=== PATIENT | male | born 1955 | race American Indian/Alaskan Native ===

== ENCOUNTER 2017-03-14 11:18 | Emergency (ER) | payer MEDICARE ==
--- NOTE | 2017-03-14 11:49 | Emergency Department Report ---
ED Male HPI - General Chief complaint: Urogenital-Male Stated complaint: PAIN/PROSTATE/GROIN AREA Time Seen by Provider: 03/14/17 11:48 Source: patient Mode of arrival: Ambulatory Limitations: No Limitations - History of Present Illness Initial comments: 61 M past medical history presents with complaint of 2-3 weeks of scrotal discomfort. Patient states that his discomfort lies directly behind his scrotum. Denies any history of prostate issues prostate enlargement or prostate cancer. States that approximately 4 months ago he had his prostate level PSA checked by primary doctor and states that it was normal. Patient denies any fevers chills abdominal pain or any diarrhea. States he has mild anal discomfort with defecation but denies any other symptoms. States he was last sexually active over a year and a half ago. Patient is awake alert and nontoxic appearing. Denies any urethral discharge. Denies any genitourinary rash. Denies any bulge in scrotum or above penis and inguinal region. No dysuria or increased urinary frequency reported. MD Complaint: testicle pain, testicle swelling Onset/Timin -: week(s) Radiation: none Severity: mild Severity scale (0 -10): 2 Quality: aching Worsens with: none - Related Data Previous Rx's Medication Instructions Recorded Last Taken Type Ondansetron [Zofran TAB] 4 mg PO Q8HR PRN #10 tablet 09/17/15 Unknown Rx Cephalexin [Keflex] 1,000 mg PO Q12HR 5 Days 09/19/15 Unknown Rx predniSONE [Deltasone] 40 mg PO QDAY #8 tab 09/19/15 Unknown Rx Famotidine [Pepcid] 20 mg PO BID #30 tablet 03/19/16 Unknown Rx Prednisone [predniSONE 10 mg 10 mg PO .TAPER #1 tab.ds.pk 03/19/16 Unknown Rx (6-Day Pack, 21 Tabs)] HYDROcodone/APAP 5-325 [[place] 1 each PO Q6HR PRN #10 tablet 04/01/16 Unknown Rx 5/325] Ibuprofen [Motrin 800 MG tab] 800 mg PO Q8HR PRN #30 tablet 06/18/16 Unknown Rx Naproxen [Naprosyn] 375 mg PO BID PRN #20 tablet 03/14/17 Unknown Rx Allergies Allergy/AdvReac Type Severity Reaction Status Date / Time No Known Allergies Allergy Verified 09/19/15 09:38 ED Review of Systems ROS: Stated complaint: PAIN/PROSTATE/GROIN AREA Other details as noted in HPI Constitutional: denies: chills, fever Eyes: denies: eye pain, eye discharge, vision change ENT: denies: ear pain, throat pain Respiratory: denies: cough, shortness of breath, wheezing Cardiovascular: denies: chest pain, palpitations Endocrine: no symptoms reported Gastrointestinal: denies: abdominal pain, nausea, diarrhea Genitourinary: as per HPI, other (discomfort behind his scrotum as per patient) . denies: urgency, dysuria Musculoskeletal: denies: back pain, joint swelling, arthralgia Skin: denies: rash, lesions Neurological: denies: headache, weakness, paresthesias Psychiatric: denies: anxiety, depression Hematological/Lymphatic: denies: easy bleeding, easy bruising ED Past Medical Hx - Past Medical History Previous Medical History?: Yes Additional medical history: Hypercholesterolemia - Surgical History Past Surgical History?: Yes Additional Surgical History: sinus surgery @ age 17, surgery on umbilicus when he was 7 - Social History Smoking Status: Never Smoker Substance Use Type: None - Medications Home Medications: Home Medications Medication Instructions Recorded Confirmed Last Taken Type Ondansetron [Zofran TAB] 4 mg PO Q8HR PRN #10 tablet 09/17/15 Unknown Rx Cephalexin [Keflex] 1,000 mg PO Q12HR 5 Days 09/19/15 Unknown Rx predniSONE [Deltasone] 40 mg PO QDAY #8 tab 09/19/15 Unknown Rx Famotidine [Pepcid] 20 mg PO BID #30 tablet 03/19/16 Unknown Rx Prednisone [predniSONE 10 mg 10 mg PO .TAPER #1 tab.ds.pk 03/19/16 Unknown Rx (6-Day Pack, 21 Tabs)] HYDROcodone/APAP 5-325 [[place] 1 each PO Q6HR PRN #10 tablet 04/01/16 Unknown Rx 5/325] Ibuprofen [Motrin 800 MG tab] 800 mg PO Q8HR PRN #30 tablet 06/18/16 Unknown Rx Naproxen [Naprosyn] 375 mg PO BID PRN #20 tablet 03/14/17 Unknown Rx ED Physical Exam - General Limitations: No Limitations General appearance: alert, in no apparent distress - Head Head exam: Present: atraumatic, normocephalic - Eye Eye exam: Present: normal appearance, PERRL, EOMI - ENT ENT exam: Present: mucous membranes moist - Neck Neck exam: Present: normal inspection - Respiratory Respiratory exam: Present: normal lung sounds bilaterally. Absent: respiratory distress - Cardiovascular Cardiovascular Exam: Present: regular rate, normal rhythm. Absent: systolic murmur, diastolic murmur, rubs, gallop - GI/Abdominal GI/Abdominal exam: Present: soft, normal bowel sounds - Rectal Rectal exam: Present: deferred, normal rectal tone, hemorrhoids (patient has 1 visible and palpable external hemorrhoid approximately 1.5 cm in size at 6 o' clock position), normal prostate (there is no palpable prostate tenderness is reproducible on digital rectal exam and no significant enlargement of prostate) - exam: Present: normal inspection External exam: Present: normal external exam, other (there is no crepitus or signs of external infection or cellulitis and scrotal or perineal region there is no crepitus on palpation anywhere in this region) - Extremities Exam Extremities exam: Present: normal inspection - Back Exam Back exam: Present: normal inspection - Neurological Exam Neurological exam: Present: alert, oriented X3, CN II-XII intact, normal gait - Psychiatric Psychiatric exam: Present: normal affect, normal mood - Skin Skin exam: Present: warm, dry, intact, normal color. Absent: rash ED Course Vital Signs 03/14/17 11:28 Temperature 98.9 F Pulse Rate 58 L Respiratory 16 Rate Blood Pressure 129/85 O2 Sat by Pulse 100 Oximetry ED Medical Decision Making - Medical Decision Making A/P: Varicocele 1-there are no signs of infection rashes or lesions otherwise externally on inspection of the patient's region 2-ultrasound shows no epididymitis, urinalysis is unremarkable, GC culture sent however infection with GC is unlikely as patient is adamant he has not been sexually active in over one year and a half. 3-naproxen when necessary 4- provided patient with follow-up information for urology and advised him to follow-up with his primary doctor as well. I advised patient to return to the ED if he notices fevers chills abdominal pain significant rectal pain or any signs of dysuria or increased urinary frequency or foul-smelling urine. Patient states he understands my instructions Critical care attestation.: If time is entered above; I have spent that time in minutes in the direct care of this critically ill patient, excluding procedure time. ED Disposition Clinical Impression: Varicocele Disposition: TO HOME OR SELFCARE Is pt being admited?: No Does the pt Need Aspirin: No Condition: Stable Instructions: Varicocele (ED), Testicle Pain (ED) Prescriptions: Naproxen [Naprosyn] 375 mg PO BID PRN #20 tablet PRN Reason: Pain Referrals: BENITO SYED MD [Staff Physician] - 3-5 Days [facility] [Provider Group] - 3-5 Days SIMIN GREWAL MD [Staff Physician] - 3-5 Days Forms: Work/School Release Form(ED) Time of Disposition: 13:46
[2017-03-14 12:40] LABS: Bilirubin,Urine NEG (Negative); Blood,Urine NEG (Negative); Ketones,Urine NEG (Negative); Leukocyte Esterase,Urine NEG (Negative); Mucus,Urine FEW /HPF; Nitrite,Urine NEG (Negative); Protein,Urine <15 mg/dL mg/dL (Negative); Urobilinogen,Urine < 2.0 mg/dL (<2.0)
--- NOTE | 2017-03-14 12:58 | Ultrasound Report ---
ULTRASOUND SCROTAL INDICATION: Pain. Evaluate for right sided epididymitis. COMPARISON: None similar. FINDINGS: Longitudinal and transverse grayscale and color flow sonographic evaluation of the scrotum and its contents demonstrates normal testicular contour and echotexture bilaterally without suspicious intrinsic lesions. Preserved bilateral blood flow. Right testicle estimated at 4.4 x 2.1 x 2.9 cm while the left testicle is 4.4 x 1.6 x 2.8 cm. Small bilateral hydroceles. Normal epididymi. Mild left varicocele possible. CONCLUSION: No acute testicular sonographic abnormality with small bilateral hydroceles noted and possible mild left varicocele, as described. Please correlate. Thank you for the opportunity to participate in this patient's care.
[2017-03-14 14:04] VITALS: BP 141/87
== END 2017-03-14 14:05 | disposition home or self-care (01) ==
LOC: ED 11:18
DX: I86.1 Scrotal varices (principal)
CPT/HCPCS: 81001; 87086; 87591; 93975; 99284

== ENCOUNTER 2017-06-20 12:40 | Emergency (ER) | payer MEDICARE ==
[2017-06-20 12:58] VITALS: BP 118/77
--- NOTE | 2017-06-20 19:44 | Emergency Department Report ---
ED ENT HPI - General Chief complaint: Earache Stated complaint: LT LEG PAIN/ EAR PAIN Time Seen by Provider: 06/20/17 18:40 Source: patient Mode of arrival: Ambulatory Limitations: No Limitations - Related Data Previous Rx's Medication Instructions Recorded Last Taken Type Ondansetron [Zofran TAB] 4 mg PO Q8HR PRN #10 tablet 09/17/15 Unknown Rx Cephalexin [Keflex] 1,000 mg PO Q12HR 5 Days 09/19/15 Unknown Rx predniSONE [Deltasone] 40 mg PO QDAY #8 tab 09/19/15 Unknown Rx Famotidine [Pepcid] 20 mg PO BID #30 tablet 03/19/16 Unknown Rx Prednisone [predniSONE 10 mg 10 mg PO .TAPER #1 tab.ds.pk 03/19/16 Unknown Rx (6-Day Pack, 21 Tabs)] HYDROcodone/APAP 5-325 [[place] 1 each PO Q6HR PRN #10 tablet 04/01/16 Unknown Rx 5/325] Ibuprofen [Motrin 800 MG tab] 800 mg PO Q8HR PRN #30 tablet 06/18/16 Unknown Rx Naproxen [Naprosyn] 375 mg PO BID PRN #20 tablet 03/14/17 Unknown Rx Amoxicillin/K Clav Tab [Augmentin 1 tab PO Q12HR #14 tab 06/20/17 Unknown Rx 875 mg] Ibuprofen [Motrin] 800 mg PO Q8HR PRN #30 tablet 06/20/17 Unknown Rx Allergies Allergy/AdvReac Type Severity Reaction Status Date / Time No Known Allergies Allergy Verified 09/19/15 09:38 ED Dental HPI - General Chief complaint: Earache Stated complaint: LT LEG PAIN/ EAR PAIN Time Seen by Provider: 06/20/17 18:40 Source: patient Mode of arrival: Ambulatory Limitations: No Limitations - Related Data Previous Rx's Medication Instructions Recorded Last Taken Type Ondansetron [Zofran TAB] 4 mg PO Q8HR PRN #10 tablet 09/17/15 Unknown Rx Cephalexin [Keflex] 1,000 mg PO Q12HR 5 Days 09/19/15 Unknown Rx predniSONE [Deltasone] 40 mg PO QDAY #8 tab 09/19/15 Unknown Rx Famotidine [Pepcid] 20 mg PO BID #30 tablet 03/19/16 Unknown Rx Prednisone [predniSONE 10 mg 10 mg PO .TAPER #1 tab.ds.pk 03/19/16 Unknown Rx (6-Day Pack, 21 Tabs)] HYDROcodone/APAP 5-325 [[place] 1 each PO Q6HR PRN #10 tablet 04/01/16 Unknown Rx 5/325] Ibuprofen [Motrin 800 MG tab] 800 mg PO Q8HR PRN #30 tablet 06/18/16 Unknown Rx Naproxen [Naprosyn] 375 mg PO BID PRN #20 tablet 03/14/17 Unknown Rx Amoxicillin/K Clav Tab [Augmentin 1 tab PO Q12HR #14 tab 06/20/17 Unknown Rx 875 mg] Ibuprofen [Motrin] 800 mg PO Q8HR PRN #30 tablet 06/20/17 Unknown Rx Allergies Allergy/AdvReac Type Severity Reaction Status Date / Time No Known Allergies Allergy Verified 09/19/15 09:38 ED Review of Systems ROS: Stated complaint: LT LEG PAIN/ EAR PAIN Other details as noted in HPI ED Past Medical Hx - Past Medical History Previous Medical History?: Yes Additional medical history: Hypercholesterolemia - Surgical History Past Surgical History?: Yes Additional Surgical History: sinus surgery @ age 17, surgery on umbilicus when he was 7 - Social History Smoking Status: Never Smoker - Medications Home Medications: Home Medications Medication Instructions Recorded Confirmed Last Taken Type Ondansetron [Zofran TAB] 4 mg PO Q8HR PRN #10 tablet 09/17/15 Unknown Rx Cephalexin [Keflex] 1,000 mg PO Q12HR 5 Days 09/19/15 Unknown Rx predniSONE [Deltasone] 40 mg PO QDAY #8 tab 09/19/15 Unknown Rx Famotidine [Pepcid] 20 mg PO BID #30 tablet 03/19/16 Unknown Rx Prednisone [predniSONE 10 mg 10 mg PO .TAPER #1 tab.ds.pk 03/19/16 Unknown Rx (6-Day Pack, 21 Tabs)] HYDROcodone/APAP 5-325 [[place] 1 each PO Q6HR PRN #10 tablet 04/01/16 Unknown Rx 5/325] Ibuprofen [Motrin 800 MG tab] 800 mg PO Q8HR PRN #30 tablet 06/18/16 Unknown Rx Naproxen [Naprosyn] 375 mg PO BID PRN #20 tablet 03/14/17 Unknown Rx Amoxicillin/K Clav Tab [Augmentin 1 tab PO Q12HR #14 tab 06/20/17 Unknown Rx 875 mg] Ibuprofen [Motrin] 800 mg PO Q8HR PRN #30 tablet 06/20/17 Unknown Rx ED Physical Exam - General Limitations: No Limitations ED Course Vital Signs 06/20/17 12:55 Temperature 98.8 F Pulse Rate 68 Respiratory 16 Rate Blood Pressure 118/77 O2 Sat by Pulse 100 Oximetry Critical care attestation.: If time is entered above; I have spent that time in minutes in the direct care of this critically ill patient, excluding procedure time. ED Disposition Clinical Impression: Earache Ear foreign body Qualifiers: Encounter type: initial encounter Laterality: right Qualified Code(s): T16.1XXA - Foreign body in right ear, initial encounter Disposition: - TO HOME OR SELFCARE Is pt being admited?: No Does the pt Need Aspirin: No Condition: Stable Instructions: Earache (ED), Ear Foreign Body (ED) Prescriptions: Amoxicillin/K Clav Tab [Augmentin 875 mg] 1 tab PO Q12HR #14 tab Ibuprofen [Motrin] 800 mg PO Q8HR PRN #30 tablet PRN Reason: Pain [facility]errals: [facility]Other] - 3-5 Days Forms: Accompanied Note, Work/School Release Form(ED) Time of Disposition: 19:41
== END 2017-06-20 20:10 | disposition home or self-care (01) ==
LOC: ED 12:40
DX: T16.1XXA Foreign body in right ear, initial encounter (principal); H92.02 Otalgia, left ear; E78.00 Pure hypercholesterolemia, unspecified; X58.XXXA Exposure to other specified factors, initial encounter; Y93.9 Activity, unspecified; Y99.9 Unspecified external cause status; Y92.89 Other specified places as the place of occurrence of the external cause
CPT/HCPCS: 99282

== ENCOUNTER 2017-06-29 08:23 | Emergency (ER) | payer MEDICARE ==
--- NOTE | 2017-06-29 10:57 | Emergency Department Report ---
ED Extremity Problem HPI - General Chief complaint: Extremity Injury, Lower Stated complaint: LEFT LEG SWOLLEN,PAIN Time Seen by Provider: 06/29/17 10:27 Source: patient Mode of arrival: Ambulatory Limitations: No Limitations - History of Present Illness Initial comments: Patient here reports that he is having left leg pain at his calf with some swelling of the back of his leg after playing basketball 10 days ago. He said he was here on 06/20/2017 and he was given an medication but he is worried about having a blood clot and he wants to be sure that he doesn't have a blood clot. Patient denies any personal history of blood clots he said his mom had blood clot but that was after surgery. He denies any long distance travel recently. Denies any prolonged bed rest. Denies any hormonal therapy. Denies any shortness of breath or chest pain. He said after he was seen today told him to follow up but he did not follow-up. He also complained of choking at times. He also reported he did not get his prescription filled last time. Patient denies any redness to his legs and he denies any fever. MD Complaint: extremity pain, extremity swelling Onset/Timin -: days(s) Location: left, lower extremity History of Same: Yes -: Yes myalgia, Yes arthralgia Radiation: none Severity scale (0 -10): 7 Quality: aching Consistency: intermittent Improves with: immobilization, rest Worsens with: weight bearing, walking, exertion Associated Symptoms: myalgias, arthralgias. denies: chest pain, shortness of breath, fever, rash - Related Data Previous Rx's Medication Instructions Recorded Last Taken Type Ondansetron [Zofran TAB] 4 mg PO Q8HR PRN #10 tablet 09/17/15 Unknown Rx Cephalexin [Keflex] 1,000 mg PO Q12HR 5 Days 09/19/15 Unknown Rx predniSONE [Deltasone] 40 mg PO QDAY #8 tab 09/19/15 Unknown Rx Famotidine [Pepcid] 20 mg PO BID #30 tablet 03/19/16 Unknown Rx Prednisone [predniSONE 10 mg 10 mg PO .TAPER #1 tab.ds.pk 03/19/16 Unknown Rx (6-Day Pack, 21 Tabs)] HYDROcodone/APAP 5-325 [[place] 1 each PO Q6HR PRN #10 tablet 04/01/16 Unknown Rx 5/325] Ibuprofen [Motrin 800 MG tab] 800 mg PO Q8HR PRN #30 tablet 06/18/16 Unknown Rx Naproxen [Naprosyn] 375 mg PO BID PRN #20 tablet 03/14/17 Unknown Rx Amoxicillin/K Clav Tab [Augmentin 1 tab PO Q12HR #14 tab 06/20/17 Unknown Rx 875 mg] Ibuprofen [Motrin] 800 mg PO Q8HR PRN #30 tablet 06/20/17 Unknown Rx Allergies Allergy/AdvReac Type Severity Reaction Status Date / Time No Known Allergies Allergy Verified 09/19/15 09:38 ED Review of Systems ROS: Stated complaint: LEFT LEG SWOLLEN,PAIN Other details as noted in HPI Comment: All other systems reviewed and negative Constitutional: no symptoms reported ENT: other (reports feeling choking sensation at times). denies: ear pain, throat pain, congestion Respiratory: no symptoms reported Cardiovascular: denies: chest pain, palpitations, dyspnea on exertion, orthopnea , edema, syncope, paroxysmal nocturnal dyspnea Gastrointestinal: denies: abdominal pain, nausea, vomiting, diarrhea, constipation, hematemesis, melena Musculoskeletal: arthralgia, myalgia. denies: back pain, joint swelling Skin: denies: rash Neurological: denies: headache, weakness, numbness, paresthesias, confusion, abnormal gait, vertigo ED Past Medical Hx - Past Medical History Previous Medical History?: Yes Additional medical history: Hypercholesterolemia - Surgical History Past Surgical History?: Yes Additional Surgical History: sinus surgery @ age 17, surgery on umbilicus when he was 7 - Family History Family history: hypertension - Social History Smoking Status: Never Smoker Substance Use Type: Non Opiate Pain - Medications Home Medications: Home Medications Medication Instructions Recorded Confirmed Last Taken Type Ondansetron [Zofran TAB] 4 mg PO Q8HR PRN #10 tablet 09/17/15 Unknown Rx Cephalexin [Keflex] 1,000 mg PO Q12HR 5 Days 09/19/15 Unknown Rx predniSONE [Deltasone] 40 mg PO QDAY #8 tab 09/19/15 Unknown Rx Famotidine [Pepcid] 20 mg PO BID #30 tablet 03/19/16 Unknown Rx Prednisone [predniSONE 10 mg 10 mg PO .TAPER #1 tab.ds.pk 03/19/16 Unknown Rx (6-Day Pack, 21 Tabs)] HYDROcodone/APAP 5-325 [[place] 1 each PO Q6HR PRN #10 tablet 04/01/16 Unknown Rx 5/325] Ibuprofen [Motrin 800 MG tab] 800 mg PO Q8HR PRN #30 tablet 06/18/16 Unknown Rx Naproxen [Naprosyn] 375 mg PO BID PRN #20 tablet 03/14/17 Unknown Rx Amoxicillin/K Clav Tab [Augmentin 1 tab PO Q12HR #14 tab 06/20/17 Unknown Rx 875 mg] Ibuprofen [Motrin] 800 mg PO Q8HR PRN #30 tablet 06/20/17 Unknown Rx ED Physical Exam - General Limitations: No Limitations General appearance: alert, in no apparent distress - Head Head exam: Present: atraumatic, normocephalic, normal inspection - Eye Eye exam: Present: PERRL, EOMI Pupils: Present: normal accommodation - ENT ENT exam: Present: normal exam, normal orophraynx, mucous membranes moist - Neck Neck exam: Present: normal inspection, full ROM. Absent: tenderness, meningismus, lymphadenopathy - Respiratory Respiratory exam: Present: normal lung sounds bilaterally. Absent: respiratory distress, wheezes, rales, rhonchi, stridor, chest wall tenderness, accessory muscle use, decreased breath sounds, prolonged expiratory - Cardiovascular Cardiovascular Exam: Present: regular rate, normal rhythm, normal heart sounds. Absent: systolic murmur, diastolic murmur - GI/Abdominal GI/Abdominal exam: Present: soft, normal bowel sounds. Absent: distended, tenderness, guarding, rebound, rigid, organomegaly, mass, bruit, pulsatile mass , hernia - Extremities Exam Extremities exam: Present: normal inspection, full ROM, normal capillary refill , other (Negative Homans sign). Absent: tenderness, pedal edema, joint swelling , calf tenderness - Expanded Lower Extremity Exam Left Hip exam: Present: normal inspection, full ROM, pelvic stability. Absent: tenderness, swelling, abrasion, laceration, ecchymosis, deformity, crepidus, dislocation, erythema, external rotation, internal rotation, shortening Upper Leg exam: Present: normal inspection, full ROM. Absent: tenderness, swelling, abrasion, laceration, ecchymosis, deformity, crepidus, dislocation, erythema Knee exam: Present: normal inspection, full ROM, full knee extension. Absent: tenderness, swelling, abrasion, laceration, ecchymosis, deformity, crepidus, dislocation, erythema, effusion, pain w/ pronation/supination, posterior draw sign, pain/laxity with valgus, pain/laxity with varus Lower Leg exam: Present: normal inspection, full ROM. Absent: tenderness, swelling, abrasion, laceration, ecchymosis, deformity, crepidus, dislocation, erythema, palpable cord, Sha's sign Ankle exam: Present: normal inspection, full ROM. Absent: tenderness, swelling , abrasion, laceration, ecchymosis, deformity, crepidus, dislocation, erythema Foot/Toe exam: Present: normal inspection, full ROM. Absent: tenderness, swelling, abrasion, laceration, ecchymosis, deformity, crepidus, dislocation, erythema, amputation, puncture wound, foreign body, calcaneal tenderness, tenderness at base of 5th metatarsal, nail avulsion, subungual hematoma Neuro vascular tendon exam: Present: no vascular compromise. Absent: pulse deficit, abnormal cap refill, motor deficit, sensory deficit, tendon deficit, extremity cold to touch, pallor, abnormal 2-point discrimination, decreased fine /light touch, foot drop, peroneal nerve deficit, significant pain with passive ROM of distal joint Gait: Positive: observed and normal - Back Exam Back exam: Present: normal inspection, full ROM. Absent: tenderness, CVA tenderness (R), CVA tenderness (L), muscle spasm, paraspinal tenderness, vertebral tenderness, rash noted - Neurological Exam Neurological exam: Present: alert, oriented X3, normal gait, reflexes normal. Absent: motor sensory deficit - Psychiatric Psychiatric exam: Present: normal affect, normal mood - Skin Skin exam: Present: warm, dry, intact, normal color. Absent: rash ED Course Vital Signs 06/29/17 08:39 Temperature 98.5 F Pulse Rate 64 Respiratory 20 Rate Blood Pressure 140/90 O2 Sat by Pulse 99 Oximetry - Reevaluation(s) Reevaluation #1: 06/29/17 12:23 She tolerated liquids in the emergency room without any signs of choking or difficulty swallowing. ED Medical Decision Making - Radiology Data Radiology results: report reviewed VASCULAR LAB.PRELIMINARY REPORT.LLE VENOUS DUPLEX DONE BEDSIDE.NO EVIDENCE OF DVT/SVT IN VESSELS VISUALIZED. SOFT TISSUE CHANGES NOTED IN THE LT.MID CALF PROBABLY MUSCLE INJURY. - Medical Decision Making ED course: Should he reports that he is having in left calf pain after basketball injury and he said he felt a knot and he is worried that he has a blood clot. Venous Doppler ultrasound completed of the left lower extremity and there were no SVT or DVT noted. There was soft tissue swelling indicated in muscle injury. She did injure his calf muscle while playing basketball 10 days ago and he did not fill his prescription nor did he follow-up with his primary care physician. I explained to patient that he does not have a blood clot in his leg and he needs to rest the affected area and take medication as prescribed. He still has his prescriptions I told him that he needs to fill the medication for the anti-inflammatory and take that as prescribed for at least 3 days. Patient voiced understanding the discharge instruction and discharged home in stable condition to follow up with his primary care physician. Critical care attestation.: If time is entered above; I have spent that time in minutes in the direct care of this critically ill patient, excluding procedure time. ED Disposition Clinical Impression: Pain of left calf, Muscle strain Injury of leg, left Qualifiers: Encounter type: initial encounter Qualified Code(s): S89.92XA - Unspecified injury of left lower leg, initial encounter Disposition: DC-01 TO HOME OR SELFCARE Is pt being admited?: No Does the pt Need Aspirin: No Condition: Stable Instructions: Arthralgia (ED), Musculoskeletal Pain (ED), Muscle Strain (ED) Additional Instructions: These follow up with your primary care physician as instructed. Take inflammatory as previously prescribed Referrals: PRIMARY MD SUZY [Primary Care Provider] - 07/01/17 Forms: Work/School Release Form(ED)
[2017-06-29] MEDS ORDERED: DILAUDID IV ONE (11:04)
[2017-06-29] MEDS ORDERED: REGLAN IV ONE (11:04)
[2017-06-29] MEDS ORDERED: ROCEPHIN/NS 1 GM/50 ML 1 GM/50 ML BAG IV ONE (11:04)
[2017-06-29 12:50] VITALS: BP 142/70
--- NOTE | 2017-06-29 17:24 | Vascular Lab Report ---
Left Lower Extremity Venous Duplex Study: Reason for Exam: Swelling of the left lower extremity. Comments on the Right: A limited duplex study was done of the proximal veins of the right lower extremity. All veins visualized are freely compressible without evidence of internal echogenicity. Flow is spontaneous and phasic throughout. No evidence of acute or chronic thrombus is seen in any of the vessels visualized. Comments on the Left: All veins visualized are freely compressible without evidence of internal echogenicity. Flow is spontaneous and phasic throughout. No evidence of acute or chronic thrombus is seen in any of the vessels visualized. Soft tissue changes are consistent with intramuscular tear or hematoma. Clinical correlation is recommended Impression: No evidence of acute or chronic deep venous thrombosis in the left lower extremity.
== END 2017-06-29 11:30 | disposition home or self-care (01) ==
LOC: ED 08:23
DX: S93.402A Sprain of unspecified ligament of left ankle, initial encounter (principal); X58.XXXA Exposure to other specified factors, initial encounter; Y93.9 Activity, unspecified; Y92.89 Other specified places as the place of occurrence of the external cause; Y99.9 Unspecified external cause status

== ENCOUNTER 2018-01-11 17:44 | Emergency (ER) | payer MEDICARE ==
[2018-01-11 17:54] VITALS: BP 144/77
[2018-01-11 19:32] LABS: Bilirubin,Urine NEG (Negative); Blood,Urine NEG (Negative); Color,Urine Straw (Yellow); Mucus,Urine FEW /HPF; Protein,Urine <15 mg/dL mg/dL (Negative); Urobilinogen,Urine < 2.0 mg/dL (<2.0); WBC,Urine < 1.0 /HPF (0.0-6.0)
--- NOTE | 2018-01-11 21:20 | Emergency Department Report ---
ED Back Pain/Injury HPI - General Chief Complaint: Back Pain/Injury Stated Complaint: RIGHT SIDE BACK PAIN Time Seen by Provider: 01/11/18 20:57 Source: patient Mode of arrival: Ambulatory Limitations: No Limitations - History of Present Illness Initial Comments: This is a 62-year-old -[place] male presents with right lower back pain. Patient reports pain started 3 days ago. He originally felt a pop in lower back and decided to cyst apply salon [facility] had some right flank. The patient reports a history of chronic neck and back pain from . He remembers feeling given here and a pop sensation in his lower back. Shot up to his neck about 2 days ago. Reports pain is dull and sharp intermittent pain that is aggravated by movement. States pain is sharp when he standing and walking and is in the right lower back. Denies swelling, redness, numbness or tingling, change in voiding or bowel pattern, and deformity. MD Complaint: back pain -: days(s) (3 days) Similar Symptoms Previously: Yes (history of chronic low back pain) Place: home Radiation: none Severity: moderate Severity scale (0 -10): 7 Quality: sharp, aching Consistency: intermittent Improves With: supine, sitting upright Worsens With: movement, walking Context: bending Associated Symptoms: denies other symptoms Treatments Prior to Arrival: heat therapy - Related Data Previous Rx's Medication Instructions Recorded Last Taken Type Ondansetron [Zofran TAB] 4 mg PO Q8HR PRN #10 tablet 09/17/15 Unknown Rx Cephalexin [Keflex] 1,000 mg PO Q12HR 5 Days cap 09/19/15 Unknown Rx predniSONE [Deltasone] 40 mg PO QDAY #8 tab 09/19/15 Unknown Rx Famotidine [Pepcid] 20 mg PO BID #30 tablet 03/19/16 Unknown Rx Prednisone [predniSONE 10 mg 10 mg PO .TAPER #1 tab.ds.pk 03/19/16 Unknown Rx (6-Day Pack, 21 Tabs)] HYDROcodone/APAP 5-325 [[place] 1 each PO Q6HR PRN #10 tablet 04/01/16 Unknown Rx 5/325] Ibuprofen [Motrin 800 MG tab] 800 mg PO Q8HR PRN #30 tablet 06/18/16 Unknown Rx Naproxen [Naprosyn] 375 mg PO BID PRN #20 tablet 03/14/17 Unknown Rx Amoxicillin/K Clav Tab [Augmentin 1 tab PO Q12HR #14 tab 06/20/17 Unknown Rx 875 mg] Ibuprofen [Motrin] 800 mg PO Q8HR PRN #30 tablet 06/20/17 Unknown Rx Cyclobenzaprine HCl [Flexeril 5 MG 5 mg PO TID PRN #20 tab 01/11/18 Unknown Rx TAB] Naproxen Sodium 550 mg PO TID PRN #20 tablet 01/11/18 Unknown Rx Prednisone [predniSONE 10 mg 10 mg PO .TAPER #1 tab.ds.pk 01/11/18 Unknown Rx (6-Day Pack, 21 Tabs)] Allergies Allergy/AdvReac Type Severity Reaction Status Date / Time No Known Allergies Allergy Verified 09/19/15 09:38 ED Review of Systems ROS: Stated complaint: RIGHT SIDE BACK PAIN Other details as noted in HPI Constitutional: denies: chills, fever Respiratory: denies: cough, shortness of breath, wheezing Cardiovascular: denies: chest pain, palpitations, edema, syncope Gastrointestinal: denies: abdominal pain, nausea, diarrhea Musculoskeletal: back pain (low back pain that is worse on right). denies: joint swelling, arthralgia Skin: denies: rash, lesions Neurological: denies: headache, weakness, paresthesias Psychiatric: denies: anxiety, depression ED Past Medical Hx - Past Medical History Hypercholesterolemia Family history: hypertension ED Back Pain Physical Exam - Exam General: Vital signs noted. No distress. Alert and acting appropriately. Back/Abdomen: Yes Sacroiliac Tenderness (right), Yes Flank Tenderness (right), No Abdominal Tenderness, No Perithoracic Tenderness, No Perilumbar Tenderness, No Straight Leg Raise Pain Neuro: Yes Normal Sensation, Yes Normal DTR's, Yes Normal Gait, No Motor Weakness ED Course Vital Signs 01/11/18 17:50 Temperature 98.6 F Pulse Rate 79 Respiratory 16 Rate Blood Pressure 144/77 O2 Sat by Pulse 99 Oximetry Ed Back Pain Tests - Tests Tests: Normal X Rays ED Medical Decision Making - Radiology Data Radiology results: report reviewed PROCEDURE: XR SPINE LUMBOSACRAL 2-3V TECHNIQUE: Lumbar spine radiographs, including AP, lateral, and lumbosacral spot views. CPT 72270 HISTORY: low back pain COMPARISON: No prior studies are available for comparison. FINDINGS: Alignment: Normal. Vertebral body heights/Disk spaces: Normal. Fracture(s): None. Facets: Normal. Bone mineralization: Normal. IMPRESSION: Normal Examination - Medical Decision Making This is a 62 y.o. male presents with low back pain for 3 days. Patient was examined by me. Vitals stable. Nontoxic appearing. Xray of L-spine obtained and normal scan. Normal UA. Patient informed of results. Physical findings susceptible of muscle strain. Start naproxe, cyclobenzaprine, and prednisone taper for pain. Plan discussed with patient to discharge home and treat outpatient. He agrees with ER plan. Patient discharged home in stable condition. Follow up with PCP and dentist in 2-3 days. Critical care attestation.: If time is entered above; I have spent that time in minutes in the direct care of this critically ill patient, excluding procedure time. ED Disposition Clinical Impression: Strain of muscle, fascia and tendon of lower back, initial encounter Disposition: TO HOME OR SELFCARE Is pt being admited?: No Does the pt Need Aspirin: No Condition: Stable Instructions: Muscle Strain (ED) Additional Instructions: Rest Use ice or heat on affected area for 20 minutes and off for 2 hours. Take pain medication as needed for pain. Don't drive or operate heavy machinery while taking muscle relaxers because they may cause drowsiness. Follow up with Primary Care Provider in 2-3 days. Prescriptions: Cyclobenzaprine HCl [Flexeril 5 MG TAB] 5 mg PO TID PRN #20 tab PRN Reason: Muscle Spasm Naproxen Sodium 550 mg PO TID PRN #20 tablet PRN Reason: Pain Prednisone [predniSONE 10 mg (6-Day Pack, 21 Tabs)] 10 mg PO .TAPER #1 tab.ds.pk Referrals: [facility] [Outside] - 3-5 Days [facility] [Outside] - 3-5 Days [facility] [Outside] - 3-5 Days Forms: Work/School Release Form(ED) Time of Disposition: 23:37 Print Language: PALESTINIAN
--- NOTE | 2018-01-11 23:18 | XRay Report ---
FINAL REPORT PROCEDURE: XR SPINE LUMBOSACRAL 2-3V TECHNIQUE: Lumbar spine radiographs, including AP, lateral, and lumbosacral spot views. CPT 95031 HISTORY: low back pain COMPARISON: No prior studies are available for comparison. FINDINGS: Alignment: Normal. Vertebral body heights/Disk spaces: Normal. Fracture(s): None. Facets: Normal. Bone mineralization: Normal. IMPRESSION: Normal Examination.
== END 2018-01-11 23:56 | disposition home or self-care (01) ==
LOC: ED 17:44
DX: S39.012A Strain of muscle, fascia and tendon of lower back, initial encounter (principal); G89.29 Other chronic pain; I10 Essential (primary) hypertension; E78.00 Pure hypercholesterolemia, unspecified; X50.9XXA Other and unspecified overexertion or strenuous movements or postures, initial encounter; Y93.89 Activity, other specified; Y99.8 Other external cause status; Y92.009 Unspecified place in unspecified non-institutional (private) residence as the place of occurrence of the external cause
CPT/HCPCS: 72100; 81001; 99283

== ENCOUNTER 2018-04-08 07:22 | Emergency (ER) | payer MEDICARE ==
[2018-04-08 08:30] VITALS: BP 129/84
[2018-04-08] MEDS ORDERED: ALUM-MAG HYDROX-SIMETH 200-200-20MG/5ML PO ONE (08:45)
[2018-04-08] MEDS ORDERED: LIDOCAINE VISCOUS 2% PO ONE (08:45)
[2018-04-08] MEDS ORDERED: ZOFRAN ODT PO ONE (08:45)
[2018-04-08] MEDS ORDERED: BENTYL PO ONE (08:45)
--- NOTE | 2018-04-08 08:45 | Emergency Department Report ---
Vomiting/Diarrhea - HPI Chief Complaint: Medical Clearance Stated Complaint: LOW BODY TEMP Time Seen by Provider: 04/08/18 08:38 Duration: 2 Days Nausea/Vomiting Severity: None Diarrhea Severity: Mild Pain Location: Epigastric (resolved) Pain Severity: Mild Symptoms: Yes Watery Diarrhea (loose stool 1), Yes Able to Tolerate Fluids, Yes Recent Unusual Foods (old popcorn), Yes Family w/ Similar Symptoms, Yes Contacts w/ Similar Symptoms, No Bloody diarrhea, No Fever, No Recent Untreated Water, No Recent use of Antibiotics, No Rash, No Hematuria, No Recent URI Symptoms Other History: This is a 62-year-old male reported that he is here because he ate some popcorn that he thought was old 2 days ago and he started feeling hot yesterday. He says his temperature was 95 yesterday at home. He denies any abdominal pain, nausea or vomiting or diarrhea at present but reports that the time he was having nausea vomiting diarrhea and he had one loose stool this morning but no vomiting. He states that he has chronic back pain from old injury. Denies any pain at present. He said he took some medication to soothe his stomach and he feels better but he is here because temperature was 95. ED Review of Systems ROS: Stated complaint: LOW BODY TEMP Other details as noted in HPI Constitutional: other (low temperature). denies: chills, fever ENT: denies: throat pain, congestion Respiratory: denies: cough, shortness of breath, wheezing Cardiovascular: denies: chest pain, palpitations Gastrointestinal: diarrhea. denies: abdominal pain, nausea, vomiting, constipation, hematemesis, melena, hematochezia Musculoskeletal: denies: back pain, joint swelling, arthralgia, myalgia Skin: denies: rash, lesions Neurological: denies: headache, weakness, numbness, paresthesias, confusion, abnormal gait, vertigo ED Past Medical Hx - Past Medical History Previous Medical History?: Yes Additional medical history: Hypercholesterolemia. Chronic lower back pain - Surgical History Past Surgical History?: Yes Additional Surgical History: sinus surgery @ age 17, surgery on umbilicus when he was 7 - Family History Family history: hypertension - Social History Smoking Status: Never Smoker Substance Use Type: None - Medications Home Medications: Home Medications Medication Instructions Recorded Confirmed Last Taken Type Ondansetron [Zofran TAB] 4 mg PO Q8HR PRN #10 tablet 09/17/15 Unknown Rx Cephalexin [Keflex] 1,000 mg PO Q12HR 5 Days cap 09/19/15 Unknown Rx predniSONE [Deltasone] 40 mg PO QDAY #8 tab 09/19/15 Unknown Rx Famotidine [Pepcid] 20 mg PO BID #30 tablet 03/19/16 Unknown Rx Prednisone [predniSONE 10 mg 10 mg PO .TAPER #1 tab.ds.pk 03/19/16 Unknown Rx (6-Day Pack, 21 Tabs)] HYDROcodone/APAP 5-325 [[place] 1 each PO Q6HR PRN #10 tablet 04/01/16 Unknown Rx 5/325] Ibuprofen [Motrin 800 MG tab] 800 mg PO Q8HR PRN #30 tablet 06/18/16 Unknown Rx Naproxen [Naprosyn] 375 mg PO BID PRN #20 tablet 03/14/17 Unknown Rx Amoxicillin/K Clav Tab [Augmentin 1 tab PO Q12HR #14 tab 06/20/17 Unknown Rx 875 mg] Ibuprofen [Motrin] 800 mg PO Q8HR PRN #30 tablet 06/20/17 Unknown Rx Cyclobenzaprine HCl [Flexeril 5 MG 5 mg PO TID PRN #20 tab 01/11/18 Unknown Rx TAB] Naproxen Sodium 550 mg PO TID PRN #20 tablet 01/11/18 Unknown Rx Prednisone [predniSONE 10 mg 10 mg PO .TAPER #1 tab.ds.pk 01/11/18 Unknown Rx (6-Day Pack, 21 Tabs)] Dicyclomine [Bentyl] 40 mg PO Q8H 3 Days #9 tablet 04/08/18 Unknown Rx Ondansetron [Zofran Odt] 4 mg PO Q6H PRN #20 tab.rapdis 04/08/18 Unknown Rx Vomiting Diarrhea Exam - Exam General: Vital signs noted. No distress. Alert and acting appropriately. This is a 62-year-old male well-nourished well-developed in no acute distress. HEENT: Yes Moist Mucous Membranes, No Pharyngeal Erythema, No Pharyngeal Exudates, No Rhinorrhea, No Conjuctival Injection, No Frontal Tenderness, No Maxillary Tenderness Neck: No Adenopathy, No Rigidity Lungs: No Clear Lung Sounds, No Good Air Exchange, No Wheezes, No Stridor, No Cough, No Nasal Flaring, No Retractions, No Use of Accessory Muscles Heart exam: Regular: Yes, Murmur: No, Tachycardia: No Abdomen: Tenderness: No, Peritoneal Signs: No, Distention: No, Hyperactive Bowel sounds: No Skin exam: Rash: No, Edema: No, Normal turgor: Yes Neurologic: Alert and oriented, no deficits. Musculoskeletal: Unremarkable. ED Course Vital Signs 04/08/18 07:22 Temperature 98.6 F Pulse Rate 70 Respiratory 18 Rate Blood Pressure 129/84 O2 Sat by Pulse 99 Oximetry - Reevaluation(s) Reevaluation #1: 04/08/18 09:24 Patient given Bentyl, lidocaine by mouth and Maalox by mouth. He is also given Zofran 8 mg ODT and was feeling better. He is able to tolerate water and emergency room without any nausea vomiting or diarrhea. ED Medical Decision Making - Medical Decision Making This is a 62-year-old male here reported that he ate that foreign and he was evidence of nausea vomiting diarrhea yesterday he had one loose stool today but no nausea or vomiting today. He also reports that he was having abdominal cramping. Denies any fevers chills and he states that he is concerned about his temperature because excellent 95. She was examined by myself. His vital signs are stable and he is afebrile. Temperature is 98.6. Abdominal back exam is normal. All other examination is normal. The patient would ambulate. He does not look sick and is nontoxic in appearance. Patient able to tolerate water and emergency room without any nausea vomiting or diarrhea. He was given Bentyl, Maalox, lidocaine and Zofran for abdominal discomforts and he said he is feeling a lot better. Patient to follow-up with his primary care physician which she does have one tomorrow Simple nausea vomiting or diarrhea-resolved Abdominal cramping-resolved She given Zofran 8 mg ODT, Bentyl 20 mg by mouth, Maalox 15 mL by mouth and lidocaine 15 mL by mouth and emergency room empirically to prevent recurrence of symptoms. He drank water and he has no symptoms of nausea vomiting diarrhea and abdominal cramping. I educated patient on bland diet to eat banana, rice, applesauce and toast over the next 72 hours and to avoid spicy and carbonated beverages and he voiced understanding Pt discharged home in stable condition. Vital signs are stable is afebrile and he said follow-up with his primary care physician tomorrow. Discharge home with prescription for Zofran and Bentyl - Differential Diagnosis gastroenteritis, food poisoning Critical care attestation.: If time is entered above; I have spent that time in minutes in the direct care of this critically ill patient, excluding procedure time. ED Disposition Clinical Impression: Nausea vomiting and diarrhea, Abdominal cramping Disposition: TO HOME OR SELFCARE Is pt being admited?: No Does the pt Need Aspirin: No Condition: Stable Instructions: Acute Nausea and Vomiting (ED), Abdominal Pain (ED), Nutrition Tips for Relief of Diarrhea (ED), Acute Diarrhea (ED) Additional Instructions: Please eat a bland diet over the next 3 days to include benign arrives some toast She will water intake Take medication as prescribed Symptoms worsen return to the emergency room Follow-up through primary care physician tomorrow Referrals: PRIMARY MD SUZY [Primary Care Provider] - 04/10/18 Forms: Work/School Release Form(ED)
== END 2018-04-08 09:41 | disposition home or self-care (01) ==
LOC: ED 07:47
DX: R10.9 Unspecified abdominal pain (principal); R11.2 Nausea with vomiting, unspecified; R19.7 Diarrhea, unspecified; E78.00 Pure hypercholesterolemia, unspecified; G89.29 Other chronic pain; M54.5 Low back pain
CPT/HCPCS: 99282; Q0162

== ENCOUNTER 2018-09-24 06:19 | Emergency (ER) | payer MEDICARE ==
--- NOTE | 2018-09-24 07:24 | Emergency Department Report ---
ED ENT HPI - General Chief complaint: Sore Throat Stated complaint: MERY / TROUBLE SWALLOWING Time Seen by Provider: 09/24/18 07:07 Source: patient Mode of arrival: Ambulatory Limitations: No Limitations - History of Present Illness Initial comments: This is a 62-year-old male nontoxic, well nourished in appearance, no acute signs of distress presents to the ED with c/o of sore throat. Patient describes sore throat as swallowing razer blades. Patient denies any fever, chills, headache, stiff neck, nausea, vomiting, chest pain, shortness of breath, n umbness or tingling. Patient denies any drooling or hoarseness. Patient denies any allergies. MD complaint: sore throat -: week(s) (1) Severity: mild Severity scale (0 -10): 8 Quality: aching Consistency: constant Improves with: none Worsens with: swallowing Associated Symptoms: pain with swallowing, sore throat. denies: fever, cough, gum swelling, toothache, tinnitus, hearing loss, discharge from ear, rhinorrhea - Related Data Previous Rx's Medication Instructions Recorded Last Taken Type Ondansetron [Zofran TAB] 4 mg PO Q8HR PRN #10 tablet 09/17/15 Unknown Rx cephALEXin [Keflex] 1,000 mg PO Q12HR 5 Days cap 09/19/15 Unknown Rx predniSONE [Deltasone] 40 mg PO QDAY #8 tab 09/19/15 Unknown Rx Famotidine [Pepcid] 20 mg PO BID #30 tablet 03/19/16 Unknown Rx Prednisone [predniSONE 10 mg 10 mg PO .TAPER #1 tab.ds.pk 03/19/16 Unknown Rx (6-Day Pack, 21 Tabs)] HYDROcodone/APAP 5-325 [[place] 1 each PO Q6HR PRN #10 tablet 04/01/16 Unknown Rx 5/325] Ibuprofen [Motrin 800 MG tab] 800 mg PO Q8HR PRN #30 tablet 06/18/16 Unknown Rx Naproxen [Naprosyn] 375 mg PO BID PRN #20 tablet 03/14/17 Unknown Rx Amoxicillin/K Clav Tab [Augmentin 1 tab PO Q12HR #14 tab 06/20/17 Unknown Rx 875 mg] Ibuprofen [Motrin] 800 mg PO Q8HR PRN #30 tablet 06/20/17 Unknown Rx Cyclobenzaprine HCl [Flexeril 5 MG 5 mg PO TID PRN #20 tab 01/11/18 Unknown Rx TAB] Naproxen Sodium 550 mg PO TID PRN #20 tablet 01/11/18 Unknown Rx Prednisone [predniSONE 10 mg 10 mg PO .TAPER #1 tab.ds.pk 01/11/18 Unknown Rx (6-Day Pack, 21 Tabs)] Dicyclomine [Bentyl] 40 mg PO Q8H 3 Days #9 tablet 04/08/18 Unknown Rx Ondansetron [Zofran Odt] 4 mg PO Q6H PRN #20 tab.rapdis 04/08/18 Unknown Rx Amoxicillin [Amoxicillin TAB] 875 mg PO BID #20 tablet 09/24/18 Unknown Rx Ibuprofen [Motrin] 600 mg PO Q8H PRN #20 tablet 09/24/18 Unknown Rx Nystas/Diphen/Xyl Visc/Mylanta 15 ml MM Q4H PRN 5 Days ml 09/24/18 Unknown Rx [Magic Mouthwash] Allergies Allergy/AdvReac Type Severity Reaction Status Date / Time No Known Allergies Allergy Verified 04/08/18 08:27 ED Dental HPI - General Chief complaint: Sore Throat Stated complaint: MERY / TROUBLE SWALLOWING Time Seen by Provider: 09/24/18 07:07 Source: patient Mode of arrival: Ambulatory Limitations: No Limitations - Related Data Previous Rx's Medication Instructions Recorded Last Taken Type Ondansetron [Zofran TAB] 4 mg PO Q8HR PRN #10 tablet 09/17/15 Unknown Rx cephALEXin [Keflex] 1,000 mg PO Q12HR 5 Days cap 09/19/15 Unknown Rx predniSONE [Deltasone] 40 mg PO QDAY #8 tab 09/19/15 Unknown Rx Famotidine [Pepcid] 20 mg PO BID #30 tablet 03/19/16 Unknown Rx Prednisone [predniSONE 10 mg 10 mg PO .TAPER #1 tab.ds.pk 03/19/16 Unknown Rx (6-Day Pack, 21 Tabs)] HYDROcodone/APAP 5-325 [[place] 1 each PO Q6HR PRN #10 tablet 04/01/16 Unknown Rx 5/325] Ibuprofen [Motrin 800 MG tab] 800 mg PO Q8HR PRN #30 tablet 06/18/16 Unknown Rx Naproxen [Naprosyn] 375 mg PO BID PRN #20 tablet 03/14/17 Unknown Rx Amoxicillin/K Clav Tab [Augmentin 1 tab PO Q12HR #14 tab 06/20/17 Unknown Rx 875 mg] Ibuprofen [Motrin] 800 mg PO Q8HR PRN #30 tablet 06/20/17 Unknown Rx Cyclobenzaprine HCl [Flexeril 5 MG 5 mg PO TID PRN #20 tab 01/11/18 Unknown Rx TAB] Naproxen Sodium 550 mg PO TID PRN #20 tablet 01/11/18 Unknown Rx Prednisone [predniSONE 10 mg 10 mg PO .TAPER #1 tab.ds.pk 01/11/18 Unknown Rx (6-Day Pack, 21 Tabs)] Dicyclomine [Bentyl] 40 mg PO Q8H 3 Days #9 tablet 04/08/18 Unknown Rx Ondansetron [Zofran Odt] 4 mg PO Q6H PRN #20 tab.rapdis 04/08/18 Unknown Rx Amoxicillin [Amoxicillin TAB] 875 mg PO BID #20 tablet 09/24/18 Unknown Rx Ibuprofen [Motrin] 600 mg PO Q8H PRN #20 tablet 09/24/18 Unknown Rx Nystas/Diphen/Xyl Visc/Mylanta 15 ml MM Q4H PRN 5 Days ml 09/24/18 Unknown Rx [Magic Mouthwash] Allergies Allergy/AdvReac Type Severity Reaction Status Date / Time No Known Allergies Allergy Verified 04/08/18 08:27 ED Review of Systems ROS: Stated complaint: MERY / TROUBLE SWALLOWING Other details as noted in HPI Constitutional: denies: chills, fever Eyes: denies: eye pain, eye discharge, vision change ENT: throat pain. denies: ear pain Respiratory: denies: cough, shortness of breath, wheezing Cardiovascular: denies: chest pain, palpitations Endocrine: no symptoms reported Gastrointestinal: denies: abdominal pain, nausea, diarrhea Genitourinary: denies: urgency, dysuria Musculoskeletal: denies: back pain, joint swelling, arthralgia Skin: denies: rash, lesions Neurological: denies: headache, weakness, paresthesias Psychiatric: denies: anxiety, depression Hematological/Lymphatic: denies: easy bleeding, easy bruising ED Past Medical Hx - Past Medical History Previous Medical History?: Yes Additional medical history: Hypercholesterolemia. Chronic lower back pain - Surgical History Past Surgical History?: Yes Additional Surgical History: sinus surgery @ age 17, surgery on umbilicus when he was 7 - Social History Smoking Status: Never Smoker - Medications Home Medications: Home Medications Medication Instructions Recorded Confirmed Last Taken Type Ondansetron [Zofran TAB] 4 mg PO Q8HR PRN #10 tablet 09/17/15 Unknown Rx cephALEXin [Keflex] 1,000 mg PO Q12HR 5 Days cap 09/19/15 Unknown Rx predniSONE [Deltasone] 40 mg PO QDAY #8 tab 09/19/15 Unknown Rx Famotidine [Pepcid] 20 mg PO BID #30 tablet 03/19/16 Unknown Rx Prednisone [predniSONE 10 mg 10 mg PO .TAPER #1 tab.ds.pk 03/19/16 Unknown Rx (6-Day Pack, 21 Tabs)] HYDROcodone/APAP 5-325 [[place] 1 each PO Q6HR PRN #10 tablet 04/01/16 Unknown Rx 5/325] Ibuprofen [Motrin 800 MG tab] 800 mg PO Q8HR PRN #30 tablet 06/18/16 Unknown Rx Naproxen [Naprosyn] 375 mg PO BID PRN #20 tablet 03/14/17 Unknown Rx Amoxicillin/K Clav Tab [Augmentin 1 tab PO Q12HR #14 tab 06/20/17 Unknown Rx 875 mg] Ibuprofen [Motrin] 800 mg PO Q8HR PRN #30 tablet 06/20/17 Unknown Rx Cyclobenzaprine HCl [Flexeril 5 MG 5 mg PO TID PRN #20 tab 01/11/18 Unknown Rx TAB] Naproxen Sodium 550 mg PO TID PRN #20 tablet 01/11/18 Unknown Rx Prednisone [predniSONE 10 mg 10 mg PO .TAPER #1 tab.ds.pk 01/11/18 Unknown Rx (6-Day Pack, 21 Tabs)] Dicyclomine [Bentyl] 40 mg PO Q8H 3 Days #9 tablet 04/08/18 Unknown Rx Ondansetron [Zofran Odt] 4 mg PO Q6H PRN #20 tab.rapdis 04/08/18 Unknown Rx Amoxicillin [Amoxicillin TAB] 875 mg PO BID #20 tablet 09/24/18 Unknown Rx Ibuprofen [Motrin] 600 mg PO Q8H PRN #20 tablet 09/24/18 Unknown Rx Nystas/Diphen/Xyl Visc/Mylanta 15 ml MM Q4H PRN 5 Days ml 09/24/18 Unknown Rx [Magic Mouthwash] ED Physical Exam - General Limitations: No Limitations General appearance: alert, in no apparent distress - Head Head exam: Present: atraumatic, normocephalic - Eye Eye exam: Present: normal appearance - Expanded ENT Exam Expanded Ear exam: Present: normal external inspection Mouth exam: Present: normal external inspection. Absent: drooling, trismus, muffled voice Teeth exam: Present: normal inspection Throat exam: Positive: tonsillar erythema, other (uvula midline). Negative: tonsillomegaly, tonsillar exudate, R peritonsillar mass, L peritonsillar mass - Neck Neck exam: Present: normal inspection, full ROM, lymphadenopathy (tonsillar). Absent: tenderness, meningismus - Extremities Exam Extremities exam: Present: normal inspection, full ROM - Back Exam Back exam: Present: normal inspection, full ROM - Neurological Exam Neurological exam: Present: alert, oriented X3 - Psychiatric Psychiatric exam: Present: normal affect, normal mood - Skin Skin exam: Present: warm, dry, intact, normal color. Absent: rash ED Course Vital Signs 09/24/18 09/24/18 06:22 06:48 Temperature 98.0 F 98.0 F Pulse Rate 62 59 L Respiratory 18 18 Rate Blood Pressure 132/79 132/79 O2 Sat by Pulse 96 96 Oximetry - Reevaluation(s) Reevaluation #1: 09/24/18 07:30 Patient is speaking in full sentences with no signs of distress noted. Critical care attestation.: If time is entered above; I have spent that time in minutes in the direct care of this critically ill patient, excluding procedure time. ED Disposition Clinical Impression: Pharyngitis Qualifiers: Pharyngitis/tonsillitis etiology: unspecified etiology Qualified Code(s): J02.9 - Acute pharyngitis, unspecified Disposition: -01 TO HOME OR SELFCARE Is pt being admited?: No Does the pt Need Aspirin: No Condition: Stable Instructions: Pharyngitis (ED) Additional Instructions: Follow-up with a primary care doctor in 3-5 days or if symptoms worsen and continue return to emergency room as soon as possible. Prescriptions: Amoxicillin [Amoxicillin TAB] 875 mg PO BID #20 tablet Ibuprofen [Motrin] 600 mg PO Q8H PRN #20 tablet PRN Reason: Pain Nystas/Diphen/Xyl Visc/Mylanta [Magic Mouthwash] 15 ml MM Q4H PRN 5 Days ml PRN Reason: Sore Throat Referrals: ARIELLE TORRES [Primary Care Provider] - 3-5 Days PRIMARY CAREMD [Referring] - 3-5 Days BRANDO EMMANUEL MD [Staff Physician] - 3-5 Days [facility] [Outside] - 3-[address] [facility] [Outside] - 3-5 Days Forms: Work/School Release Form(ED)
== END 2018-09-24 07:51 | disposition home or self-care (01) ==
LOC: ED 06:19
CPT/HCPCS: 99282

== ENCOUNTER 2018-10-04 09:56 | Emergency (ER) | payer MEDICARE ==
[2018-10-04 10:05] VITALS: BP 150/75
--- NOTE | 2018-10-04 11:32 | XRay Report ---
ROUTINE CHEST, TWO VIEWS: Chest pain. PA and lateral views demonstrate the heart and mediastinal contour to be of normal size and shape. The lungs are clear and fully expanded and the soft tissues and bony structures are normal. Notable change compared to prior exam in March 2016. IMPRESSION: Normal study.
--- NOTE | 2018-10-04 11:34 | XRay Report ---
AP AND LATERAL SOFT TISSUES OF THE NECK: Dysphasia. The contour of the upper airway appears within normal limits. The epiglottis is not enlarged. No prevertebral soft tissue swelling is apparent. No mass density or foreign body is evident. IMPRESSION: Normal study.
--- NOTE | 2018-10-04 12:44 | Emergency Department Report ---
HPI - General Chief Complaint: Sore Throat Time Seen by Provider: 10/04/18 10:38 - HPI HPI: This is a 62-year-old male who presents to ED stating that he was recently seen all week ago for sore throat. Patient states that he states some amoxicillin as prescribed medicine as discomfort to the neck area. Patient states he drank itself was appropriately. Patient states was reevaluated to have an x-ray this episode lump in his throat. He denies fevers/chills/nausea vomiting. ED Past Medical Hx - Past Medical History Additional medical history: Hypercholesterolemia. Chronic lower back pain - Surgical History Additional Surgical History: sinus surgery @ age 17, surgery on umbilicus when he was 7 - Social History Smoking Status: Never Smoker Substance Use Type: None - Medications Home Medications: Home Medications Medication Instructions Recorded Confirmed Last Taken Type Ondansetron [Zofran TAB] 4 mg PO Q8HR PRN #10 tablet 09/17/15 Unknown Rx cephALEXin [Keflex] 1,000 mg PO Q12HR 5 Days cap 09/19/15 Unknown Rx predniSONE [Deltasone] 40 mg PO QDAY #8 tab 09/19/15 Unknown Rx Famotidine [Pepcid] 20 mg PO BID #30 tablet 03/19/16 Unknown Rx Prednisone [predniSONE 10 mg 10 mg PO .TAPER #1 tab.ds.pk 03/19/16 Unknown Rx (6-Day Pack, 21 Tabs)] HYDROcodone/APAP 5-325 [[place] 1 each PO Q6HR PRN #10 tablet 04/01/16 Unknown Rx 5/325] Ibuprofen [Motrin 800 MG tab] 800 mg PO Q8HR PRN #30 tablet 06/18/16 Unknown Rx Naproxen [Naprosyn] 375 mg PO BID PRN #20 tablet 03/14/17 Unknown Rx Ibuprofen [Motrin] 800 mg PO Q8HR PRN #30 tablet 06/20/17 Unknown Rx Cyclobenzaprine HCl [Flexeril 5 MG 5 mg PO TID PRN #20 tab 01/11/18 Unknown Rx TAB] Naproxen Sodium 550 mg PO TID PRN #20 tablet 01/11/18 Unknown Rx Prednisone [predniSONE 10 mg 10 mg PO .TAPER #1 tab.ds.pk 01/11/18 Unknown Rx (6-Day Pack, 21 Tabs)] Dicyclomine [Bentyl] 40 mg PO Q8H 3 Days #9 tablet 04/08/18 Unknown Rx Ondansetron [Zofran Odt] 4 mg PO Q6H PRN #20 tab.rapdis 04/08/18 Unknown Rx Amoxicillin [Amoxicillin TAB] 875 mg PO BID #20 tablet 09/24/18 Unknown Rx Ibuprofen [Motrin] 600 mg PO Q8H PRN #20 tablet 09/24/18 Unknown Rx Amoxicillin/K Clav Tab [Augmentin 1 tab PO Q12HR #14 tab 10/04/18 Unknown Rx 875MG TAB] Nystas/Diphen/Xyl Visc/Mylanta 15 ml MM Q4H PRN 5 Days ml 10/04/18 Unknown Rx [Magic Mouthwash] ED Review of Systems ROS: Stated complaint: RT SIDE THROAT PAIN Other details as noted in HPI Comment: All other systems reviewed and negative Physical Exam - Physical Exam Vital Signs: Vital Signs 10/04/18 10:02 Temperature 98.7 F Pulse Rate 72 Respiratory 18 Rate Blood Pressure 150/75 O2 Sat by Pulse 99 Oximetry Physical Exam: GENERAL: Alert and oriented x3, no apparent distress, Normal Gait, atraumatic. HEAD: Head is normocephalic and a-traumatic. EARS: symetrical, atraumatic, non tender, ear canal clear and moderate cerumen, tympanic membrance non inflamed. gross auditory nml bilaterally. MOUTH:Mouth is well hydrated and without lesions. Tonsils nonerythematous or swollen, Uvula midline, Tongue not elevated. Mucous membranes are moist. Posterior pharynx clear, no exudate or lesions. Patent airways. NECK: Supple. Non edematous, No carotid bruits. No lymphadenopathy or thyromegaly. No C-spine tenderness LUNGS: Symetrical with respiration, No wheezing, no rales or crackles, CTAB. HEART: S1, S2 present, regular rate and rhythm without murmur, no rubs, no gallops. Non tender to palpation SKIN: Warm and dry, No lesions, No ulceration or induration present. ED Course Vital Signs 10/04/18 10:02 Temperature 98.7 F Pulse Rate 72 Respiratory 18 Rate Blood Pressure 150/75 O2 Sat by Pulse 99 Oximetry ED Medical Decision Making - Radiology Data Radiology results: report reviewed, image reviewed Fluoro Time In Minutes: AP AND LATERAL SOFT TISSUES OF THE NECK: Dysphasia. The contour of the upper airway appears within normal limits. The epiglottis is not enlarged. No prevertebral soft tissue swelling is apparent. No mass density or foreign body is evident. IMPRESSION: Normal study. Transcribed By: MARISELA Dictated By: RANCHO MCGINNIS MD Electronically Authenticated By: RANCHO MCGINNIS MD Signed Date/Time: 10/04/18 1129 - Medical Decision Making 62-year-old male presents with pharyngitis. X-ray shows no acute findings Upon evaluation patient's airway was clear. I discussed findings with patient. I discussed the patient's continue taking his antibiotic therapy. Vital signs are normal he is in no acute respiratory distress. discussed follow-up with primary care physician. Critical care attestation.: If time is entered above; I have spent that time in minutes in the direct care of this critically ill patient, excluding procedure time. ED Disposition Clinical Impression: Pharyngitis Disposition: DC-01 TO HOME OR SELFCARE Is pt being admited?: No Does the pt Need Aspirin: No Condition: Stable Instructions: Pharyngitis (ED) Additional Instructions: Make sure to follow up with the primary care physician as discussed. Take all your medications as you've been prescribed. If you have any worsening symptoms or develop new symptoms please return to ED immediately. Prescriptions: Amoxicillin/K Clav Tab [Augmentin 875MG TAB] 1 tab PO Q12HR #14 tab Nystas/Diphen/Xyl Visc/Mylanta [Magic Mouthwash] 15 ml MM Q4H PRN 5 Days ml PRN Reason: Sore Throat Referrals: BASIM HERNANDEZ MD [Primary Care Provider] - 3-5 Days Forms: Work/School Release Form(ED) Time of Disposition: 12:43
== END 2018-10-04 12:50 | disposition home or self-care (01) ==
LOC: ED 09:56
DX: J02.9 Acute pharyngitis, unspecified (principal); E78.00 Pure hypercholesterolemia, unspecified; G89.29 Other chronic pain
CPT/HCPCS: 70360; 71046; 99283

== ENCOUNTER 2018-10-20 08:24 | Emergency (ER) | payer MEDICARE ==
[2018-10-20 08:33] VITALS: BP 141/87
--- NOTE | 2018-10-20 09:36 | Emergency Department Report ---
ED ENT HPI - General Chief complaint: Dental/Oral Stated complaint: LFT SIDE PAIN Time Seen by Provider: 10/20/18 09:35 Source: patient Mode of arrival: Ambulatory Limitations: No Limitations - History of Present Illness Initial comments: Patient is a very pleasant 62-year-old patient who comes to the emergency room complaining of lower left dental pain. He was here about a month ago he said and was treated for lymphadenopathy involving the right side of his neck- with amox. He followed up with an ENT just a few days ago and the ENT cleared him fr om an ENT perspective. The ENT told him he needed to see a dentist for his dental caries. ENT also told him that he would not be able to be treated by the dentist until he had antibiotics so the pt came to the ER Patient denies fever, body aches, nausea vomiting, diarrhea, chest pain or shortness of breath. Severity: moderate Consistency: intermittent Worsens with: eating Context- Dental: history of dental caries, poor dental care Associated Symptoms: gum swelling, toothache. denies: fever, cough, pain with swallowing, sore throat, tinnitus, hearing loss, discharge from ear, rhinorrhea - Related Data Previous Rx's Medication Instructions Recorded Last Taken Type Clindamycin [Clindamycin CAP] 300 mg PO Q8H #30 cap 10/20/18 Unknown Rx Allergies Allergy/AdvReac Type Severity Reaction Status Date / Time No Known Allergies Allergy Verified 10/20/18 08:26 ED Dental HPI - General Chief complaint: Dental/Oral Stated complaint: LFT SIDE PAIN Time Seen by Provider: 10/20/18 09:35 Source: patient Mode of arrival: Ambulatory Limitations: No Limitations - Related Data Previous Rx's Medication Instructions Recorded Last Taken Type Clindamycin [Clindamycin CAP] 300 mg PO Q8H #30 cap 10/20/18 Unknown Rx Allergies Allergy/AdvReac Type Severity Reaction Status Date / Time No Known Allergies Allergy Verified 10/20/18 08:26 ED Review of Systems ROS: Stated complaint: LFT SIDE PAIN Other details as noted in HPI Comment: All other systems reviewed and negative Constitutional: denies: chills Eyes: denies: eye pain ENT: as per HPI, dental pain Respiratory: denies: cough Cardiovascular: denies: chest pain Gastrointestinal: denies: abdominal pain Genitourinary: denies: urgency Musculoskeletal: denies: back pain Skin: denies: rash Neurological: denies: weakness Psychiatric: denies: anxiety Hematological/Lymphatic: denies: easy bleeding ED Past Medical Hx - Past Medical History Previous Medical History?: Yes Additional medical history: Hypercholesterolemia. Chronic lower back pain - Surgical History Past Surgical History?: Yes Additional Surgical History: sinus surgery @ age 17, surgery on umbilicus when he was 7 - Family History Family history: no significant - Social History Smoking Status: Never Smoker Substance Use Type: Alcohol - Medications Home Medications: Home Medications Medication Instructions Recorded Confirmed Last Taken Type Clindamycin [Clindamycin CAP] 300 mg PO Q8H #30 cap 10/20/18 Unknown Rx ED Physical Exam - General Limitations: No Limitations General appearance: alert, in no apparent distress - Head Head exam: Present: atraumatic - Eye Eye exam: Present: normal appearance, PERRL - ENT ENT exam: Present: mucous membranes moist - Expanded ENT Exam Expanded Ear exam: Present: normal external inspection Mouth exam: Present: tongue normal. Absent: drooling, trismus, muffled voice, tongue elevation Teeth exam: Present: dental caries 1 - Other (caries and gingival disease) Throat exam: Positive: normal inspection. Negative: tonsillar erythema, tonsillomegaly, tonsillar exudate, R peritonsillar mass, L peritonsillar mass - Neck Neck exam: Present: full ROM, lymphadenopathy. Absent: tenderness - Respiratory Respiratory exam: Present: normal lung sounds bilaterally - Cardiovascular Cardiovascular Exam: Present: regular rate - GI/Abdominal GI/Abdominal exam: Present: soft, normal bowel sounds - Rectal Rectal exam: Present: deferred - Extremities Exam Extremities exam: Present: normal inspection, full ROM - Back Exam Back exam: Present: normal inspection, full ROM - Neurological Exam Neurological exam: Present: alert, oriented X3 - Psychiatric Psychiatric exam: Present: normal affect, depressed - Skin Skin exam: Present: warm, dry, intact ED Course Vital Signs 10/20/18 08:32 Temperature 97.9 F Pulse Rate 66 Respiratory 18 Rate Blood Pressure 141/87 O2 Sat by Pulse 99 Oximetry ED Medical Decision Making - Medical Decision Making NO ABSCESS NO LUDWIGS NO TRISMUS CONTROLLING SECRETIONS TAKING PO NO FEVER CHART REVIEWED 2 OTHER VISITS IN ON AMOX XRAY SOFT TISSUE NECK NORMAL PT HAS BEEN TO ENT THIS WEEK FOR EVAL AND CLEARED NEEDS TO SEE DMD DISCUSSED WITH PT REFERRALS PROVIDED Critical care attestation.: If time is entered above; I have spent that time in minutes in the direct care of this critically ill patient, excluding procedure time. ED Disposition Clinical Impression: Dental disease, Gum disease Disposition: TO HOME OR SELFCARE Is pt being admited?: No Does the pt Need Aspirin: No Condition: Stable Instructions: Toothache (ED) Additional Instructions: MED ORDERED TODAY WITH FOOD FOLLOW UP DENTIST EDWARD THIS IS 3RD COURSE OF ANTIBIOTICS IN A MONTH- THE DEFINITIVE TREATMENT IS REMOVAL OF DISEASED TOOTH DIET TOLERATED MOTRIN OR TYLENOL FOR PAIN GOOD DENTAL HYGIENE MOTRIN OR TYLENOL FOR PAIN Prescriptions: Clindamycin [Clindamycin CAP] 300 mg PO Q8H #30 cap Referrals: AMY MAJORBALDWIN MD NILE [Primary Care Provider] - 3-5 Days [facility] [Outside] - 3-[address] [facility] [Outside] - 3-5 Days Time of Disposition: 09:40
== END 2018-10-20 10:23 | disposition home or self-care (01) ==
LOC: ED 08:24
DX: K06.9 Disorder of gingiva and edentulous alveolar ridge, unspecified (principal); K08.9 Disorder of teeth and supporting structures, unspecified; G89.29 Other chronic pain; E78.00 Pure hypercholesterolemia, unspecified
CPT/HCPCS: 99282

== ENCOUNTER 2018-11-13 08:16 | Emergency (ER) | payer MEDICARE ==
[2018-11-13 08:24] VITALS: BP 138/76
--- NOTE | 2018-11-13 09:22 | Emergency Department Report ---
ED Extremity Problem HPI - General Chief complaint: Neck Pain/Injury Stated complaint: NECK/BACK PAIN Time Seen by Provider: 11/13/18 09:10 Source: patient Mode of arrival: Ambulatory Limitations: No Limitations - History of Present Illness Initial comments: Patient is a 62-year-old -[place] male with a past smoker history of chronic neck pain from work in the who is presenting with 3 days of pain in the right shoulder. Patient states he was at the gym and felt some minor discomfort in the right shoulder with rotating his right upper extremity. Patient now states these feels a great deal of tightness and the right posterior neck and trapezius. The patient denies any direct injury or trauma. Patient states that it when the pain is most intense he does feel diaphoretic and slightly nauseous. Patient denies any chest pain or shortness of breath exertional component to this pain. Patient states the pain is worse with movem ent and again feels like a spasm or a tight feeling. Severity scale (0 -10): 10 - Related Data Previous Rx's Medication Instructions Recorded Last Taken Type Clindamycin [Clindamycin CAP] 300 mg PO Q8H #30 cap 10/20/18 Unknown Rx HYDROcodone/APAP 5-325 [[place] 1 each PO Q6HR PRN #12 tablet 11/13/18 Unknown Rx 5/325] Ibuprofen [Motrin] 800 mg PO Q8HR PRN #20 tablet 11/13/18 Unknown Rx methOCARBAMOL [Robaxin TAB] 500 mg PO Q6H PRN #15 tablet 11/13/18 Unknown Rx Allergies Allergy/AdvReac Type Severity Reaction Status Date / Time No Known Allergies Allergy Verified 10/20/18 08:26 ED Review of Systems ROS: Stated complaint: NECK/BACK PAIN Other details as noted in HPI Comment: All other systems reviewed and negative ED Past Medical Hx - Past Medical History Previous Medical History?: Yes Additional medical history: Hypercholesterolemia. Chronic lower back pain - Surgical History Past Surgical History?: Yes Additional Surgical History: sinus surgery @ age 17, surgery on umbilicus when he was 7 - Social History Smoking Status: Never Smoker Substance Use Type: Alcohol - Medications Home Medications: Home Medications Medication Instructions Recorded Confirmed Last Taken Type Clindamycin [Clindamycin CAP] 300 mg PO Q8H #30 cap 10/20/18 Unknown Rx HYDROcodone/APAP 5-325 [[place] 1 each PO Q6HR PRN #12 tablet 11/13/18 Unknown Rx 5/325] Ibuprofen [Motrin] 800 mg PO Q8HR PRN #20 tablet 11/13/18 Unknown Rx methOCARBAMOL [Robaxin TAB] 500 mg PO Q6H PRN #15 tablet 11/13/18 Unknown Rx ED Physical Exam - General Limitations: No Limitations General appearance: alert, in no apparent distress - Head Head exam: Present: atraumatic, normocephalic - Eye Eye exam: Present: normal appearance - ENT ENT exam: Present: mucous membranes moist - Neck Neck exam: Present: normal inspection - Respiratory Respiratory exam: Present: normal lung sounds bilaterally. Absent: respiratory distress, wheezes, rales, rhonchi - Cardiovascular Cardiovascular Exam: Present: regular rate, normal rhythm. Absent: systolic murmur, diastolic murmur, rubs, gallop - GI/Abdominal GI/Abdominal exam: Present: soft, normal bowel sounds. Absent: distended, tenderness, guarding - Rectal Rectal exam: Present: deferred - Extremities Exam Extremities exam: Present: normal inspection - Expanded Upper Extremity Exam Right Shoulder Exam: Present: normal inspection, full ROM, tenderness. Absent: deformity (trapezius), crepidus, dislocation, erythema, tenderness over AC joint - Back Exam Back exam: Present: normal inspection - Neurological Exam Neurological exam: Present: alert, oriented X3 - Psychiatric Psychiatric exam: Present: normal affect, normal mood - Skin Skin exam: Present: warm, dry, intact, normal color. Absent: rash ED Course Vital Signs 11/13/18 08:23 Temperature 98.7 F Pulse Rate 71 Respiratory 18 Rate Blood Pressure 138/76 [Right] O2 Sat by Pulse 97 Oximetry ED Medical Decision Making - EKG Data -: EKG Interpreted by Me - EKG Data 11/13/18 09:19 EKG shows sinus rhythm a rate of 67 mode there is normal axis normal intervals. No ST segment elevation or depressions. There are T-wave inversions in V5 and V6. There is no change from EKG from 2016. - Medical Decision Making Patient with likely muscle spasm in the rotator cuff and right trapezius. Patient be referred to orthopedics and given meds for symptomatic relief. Critical care attestation.: If time is entered above; I have spent that time in minutes in the direct care of this critically ill patient, excluding procedure time. ED Disposition Clinical Impression: Muscle spasm Rotator cuff strain Qualifiers: Encounter type: initial encounter Laterality: right Qualified Code(s): S46.011A - Strain of muscle(s) and tendon(s) of the rotator cuff of right shoulder, initial encounter Disposition: TO HOME OR SELFCARE Is pt being admited?: No Does the pt Need Aspirin: No Condition: Stable Instructions: Rotator Cuff Injury (ED) Referrals: RANCHO MATTHEWS MD [Staff Physician] - 3-5 Days Time of Disposition: 09:21
[2018-11-13] MEDS ORDERED: TORADOL IM ONE (09:24)
== END 2018-11-13 09:30 | disposition home or self-care (01) ==
LOC: ED 08:16
DX: S46.011A Strain of muscle(s) and tendon(s) of the rotator cuff of right shoulder, initial encounter (principal); M62.838 Other muscle spasm; E78.00 Pure hypercholesterolemia, unspecified; M54.5 Low back pain; G89.29 Other chronic pain; X58.XXXA Exposure to other specified factors, initial encounter; Y93.43 Activity, gymnastics; Y92.39 Other specified sports and athletic area as the place of occurrence of the external cause; Y99.0 Civilian activity done for income or pay
CPT/HCPCS: 93005; 93010; 99282; J1885

== ENCOUNTER 2018-12-15 08:16 | Emergency (ER) | payer MEDICARE ==
[2018-12-15] MEDS ORDERED: NACL 0.9% 1000 ML 1,000 ML IV ONE (08:42)
[2018-12-15 09:02] VITALS: BP 138/91
[2018-12-15 09:07] LABS: Basophils % (Auto) 0.8 % (0.0-1.8); Eosinophils # (Auto) 0.1 K/mm3 (0.0-0.4); Hematocrit 46.2 % (35.5-45.6); Hemoglobin 15.5 gm/dl (11.8-15.2); Lymphocytes # (Auto) 1.6 K/mm3 (1.2-5.4); Lymphocytes % (Auto) 40.7 % (13.4-35.0); Mean Corpuscular HGB Conc 34 % (32-34); Mean Corpuscular Volume 90 fl (84-94); Monocytes # (Auto) 0.5 K/mm3 (0.0-0.8); Monocytes % (Auto) 11.9 % (0.0-7.3); Platelet Count 173 K/mm3 (140-440); Red Blood Count 5.12 M/mm3 (3.65-5.03); Red Cell Distribution Width 12.7 % (13.2-15.2)
[2018-12-15 09:23] LABS: Alanine Aminotransferase 19 units/L (7-56); Albumin 4.3 g/dL (3.9-5); BUN/Creatinine Ratio 9; Blood Urea Nitrogen 10 mg/dL (9-20); Calcium 9.2 mg/dL (8.4-10.2); Hemolysis Index 18
--- NOTE | 2018-12-15 10:45 | Emergency Department Report ---
ED General Adult HPI - General Chief complaint: Abdominal Pain Stated complaint: ABD/NAVEL PAIN Time Seen by Provider: 12/15/18 09:32 Source: patient Mode of arrival: Ambulatory Limitations: No Limitations - History of Present Illness Initial comments: Patient is a 62-year-old [place] male with a past history of recent colonoscopy. Patient states he had a cold last week last Tuesday and starting the day after he began having some crampy mid abdominal discomfort. Patient states he has had bowel movements and is passing flatus. There's been no nausea vomiting. Patient denies any cough cold congestion. Patient states the pain is worse with movement and also is somewhat colicky. He says it worse the pain as a 7 out of 10. Patient states his pain is relieved some with bowel movements Severity scale (0 -10): 7 - Related Data Previous Rx's Medication Instructions Recorded Last Taken Type Clindamycin [Clindamycin CAP] 300 mg PO Q8H #30 cap 10/20/18 Unknown Rx HYDROcodone/APAP 5-325 [[place] 1 each PO Q6HR PRN #12 tablet 11/13/18 Unknown Rx 5/325] Ibuprofen [Motrin] 800 mg PO Q8HR PRN #20 tablet 11/13/18 Unknown Rx methOCARBAMOL [Robaxin TAB] 500 mg PO Q6H PRN #15 tablet 11/13/18 Unknown Rx Dicyclomine [Bentyl] 20 mg PO QID #10 tablet 12/15/18 Unknown Rx Ibuprofen [Ibu] 600 mg PO Q6HR PRN #20 tablet 12/15/18 Unknown Rx methOCARBAMOL [Robaxin TAB] 500 mg PO Q6H PRN #14 tablet 12/15/18 Unknown Rx Allergies Allergy/AdvReac Type Severity Reaction Status Date / Time No Known Allergies Allergy Verified 12/15/18 08:18 ED Review of Systems ROS: Stated complaint: ABD/NAVEL PAIN Other details as noted in HPI Comment: All other systems reviewed and negative ED Past Medical Hx - Past Medical History Additional medical history: Hypercholesterolemia. Chronic lower back pain - Surgical History Additional Surgical History: sinus surgery @ age 17, surgery on umbilicus when he was 7 - Social History Smoking Status: Never Smoker Substance Use Type: None - Medications Home Medications: Home Medications Medication Instructions Recorded Confirmed Last Taken Type Clindamycin [Clindamycin CAP] 300 mg PO Q8H #30 cap 10/20/18 Unknown Rx HYDROcodone/APAP 5-325 [[place] 1 each PO Q6HR PRN #12 tablet 11/13/18 Unknown Rx 5/325] Ibuprofen [Motrin] 800 mg PO Q8HR PRN #20 tablet 11/13/18 Unknown Rx methOCARBAMOL [Robaxin TAB] 500 mg PO Q6H PRN #15 tablet 11/13/18 Unknown Rx Dicyclomine [Bentyl] 20 mg PO QID #10 tablet 12/15/18 Unknown Rx Ibuprofen [Ibu] 600 mg PO Q6HR PRN #20 tablet 12/15/18 Unknown Rx methOCARBAMOL [Robaxin TAB] 500 mg PO Q6H PRN #14 tablet 12/15/18 Unknown Rx ED Physical Exam - General Limitations: No Limitations General appearance: alert, in no apparent distress - Head Head exam: Present: atraumatic, normocephalic - Eye Eye exam: Present: normal appearance - ENT ENT exam: Present: mucous membranes moist - Neck Neck exam: Present: normal inspection - Respiratory Respiratory exam: Present: normal lung sounds bilaterally. Absent: respiratory distress, wheezes, rales, rhonchi - Cardiovascular Cardiovascular Exam: Present: regular rate, normal rhythm. Absent: systolic murmur, diastolic murmur, rubs, gallop - GI/Abdominal GI/Abdominal exam: Present: soft, tenderness (patient has some point tenderness just to the left of the umbilicus), normal bowel sounds. Absent: distended, guarding, rebound, rigid, organomegaly, mass, bruit - Rectal Rectal exam: Present: deferred - Extremities Exam Extremities exam: Present: normal inspection - Back Exam Back exam: Present: normal inspection - Neurological Exam Neurological exam: Present: alert, oriented X3 - Psychiatric Psychiatric exam: Present: normal affect, normal mood - Skin Skin exam: Present: warm, dry, intact, normal color. Absent: rash ED Course Vital Signs 12/15/18 08:39 Temperature 98.2 F Pulse Rate 72 Respiratory 18 Rate Blood Pressure 138/91 O2 Sat by Pulse 100 Oximetry ED Medical Decision Making - Lab Data Result diagrams: 12/15/18 08:44 12/15/18 08:44 - Radiology Data Radiology results: image reviewed (patient has now instructed bowel gas pattern. He does have one loop of bowel in the mid abdomen that is slightly prominent however he does have air all the way through the rectum.) - Medical Decision Making Patient is a 62-year-old male who is coming in with some abdominal discomfort. Patient had a bowel movement here in the emergency department states he feels almost back to normal except for still has some point tenderness just left to the umbilicus. Patient likely with some muscular abdominal discomfort may be from positioning during his colonoscopy. Patient also likely was somewhat colicky gas-like pains. Patient to be started on Bentyl be discharged home. Critical care attestation.: If time is entered above; I have spent that time in minutes in the direct care of this critically ill patient, excluding procedure time. ED Disposition Clinical Impression: Gas pain Abdominal wall strain Qualifiers: Encounter type: initial encounter Qualified Code(s): S39.011A - Strain of muscle, fascia and tendon of abdomen, initial encounter Disposition: DC-01 TO HOME OR SELFCARE Is pt being admited?: No Does the pt Need Aspirin: No Condition: Stable Instructions: Muscle Strain (ED) Additional Instructions: Please follow-up with your primary care physician as needed. Time of Disposition: 10:45
--- NOTE | 2018-12-15 11:01 | XRay Report ---
ABDOMINAL SERIES: History: Abdominal pain after colonoscopy. Erect chest film shows no acute or significant changes involving the heart or lung batista. There is no evidence of free air beneath the diaphragms. The gas pattern within the abdomen is unremarkable. There is no evidence of bowel dilatation, significant air-fluid levels, or masses. Organ shadows are unremarkable. IMPRESSION: Abdominal series within normal limits.
== END 2018-12-15 10:50 | disposition home or self-care (01) ==
LOC: ED 08:16
DX: S39.011A Strain of muscle, fascia and tendon of abdomen, initial encounter (principal); R14.1 Gas pain; E78.00 Pure hypercholesterolemia, unspecified; G89.29 Other chronic pain; M54.5 Low back pain; X58.XXXA Exposure to other specified factors, initial encounter; Y93.89 Activity, other specified; Y92.89 Other specified places as the place of occurrence of the external cause; Y99.8 Other external cause status
CPT/HCPCS: 36415; 74022; 80053; 85025; 99283

== ENCOUNTER 2019-02-23 11:58 | Emergency (ER) | payer MEDICARE ==
--- NOTE | 2019-02-23 12:18 | Event Note ---
ED Screening Note ED Screening Note: [facility] hpld vit d level 12 rx none psh sinus years ago dad pna at 20 took d for months; then off; yesterday he took vit D yesterday and about 1 hours later felt flushed---kept getting worse; he then got hot and light headed; got anxious; developed diarrhea at the time he had some cp/sob he had palpitations wake him up during the night no cig/etoh/drugs This initial assessment/diagnostic orders/clinical plan/treatment(s) is/are subject to change based on patients health status, clinical progression and re- assessment by fellow clinical providers in the ED. Further treatment and workup at subsequent clinical providers discretion. Patient/guardian urged not to elope from the ED as their condition may be serious if not clinically assessed and managed. Initial orders include:
[2019-02-23 12:36] LABS: Hemoglobin 16.6 gm/dl (11.8-15.2); Mean Corpuscular HGB Conc 35 % (32-34); Mean Corpuscular Volume 89 fl (84-94); Platelet Count 189 K/mm3 (140-440); Red Blood Count 5.42 M/mm3 (3.65-5.03); Red Cell Distribution Width 13.3 % (13.2-15.2)
[2019-02-23 12:58] LABS: Alanine Aminotransferase 25 units/L (7-56); Albumin 4.6 g/dL (3.9-5); BUN/Creatinine Ratio 11; Blood Urea Nitrogen 13 mg/dL (9-20); Calcium 9.8 mg/dL (8.4-10.2); Hemolysis Index 8
[2019-02-23 13:09] LABS: Bilirubin,Urine NEG (Negative); Blood,Urine NEG (Negative); Color,Urine Yellow (Yellow); Mucus,Urine FEW /HPF; Protein,Urine <15 mg/dL mg/dL (Negative); Urobilinogen,Urine < 2.0 mg/dL (<2.0); WBC,Urine < 1.0 /HPF (0.0-6.0)
--- NOTE | 2019-02-23 13:26 | XRay Report ---
ROUTINE CHEST, TWO VIEWS: HISTORY: chest pain. The trachea, heart, mediastinal contour, lung batista and bony thorax are unremarkable. IMPRESSION: Unremarkable chest x-ray.
--- NOTE | 2019-02-23 13:55 | Emergency Department Report ---
ED Palpitations HPI - General Chief Complaint: Arrhythmia/Palpitations Stated Complaint: DIARRHEA/RAPID HEART BEAT Time Seen by Provider: 02/23/19 13:30 Source: patient Mode of arrival: Ambulatory Limitations: No Limitations - History of Present Illness Initial Comments: 63-year-old male presents to the ED for evaluation. Patient states he took his vitamin D pill yesterday for the first time after not taking it for a while. Patient states soon after he began to feel lightheaded and jittery. Patient reported experiencing palpitations that woke him up in the middle of the night. Also reports several episodes of diarrhea as well. Denies fever, headache, chest pain, shortness of breath, nausea or vomiting. MD Complaint: "heart racing" -: Last night Context: awoke with symptoms Associated Symptoms: chest pain, shortness of breath. denies: nausea/vomiting, diaphoresis - Related Data Previous Rx's Medication Instructions Recorded Last Taken Type Clindamycin [Clindamycin CAP] 300 mg PO Q8H #30 cap 10/20/18 Unknown Rx HYDROcodone/APAP 5-325 [[place] 1 each PO Q6HR PRN #12 tablet 11/13/18 Unknown Rx 5/325] Ibuprofen [Motrin] 800 mg PO Q8HR PRN #20 tablet 11/13/18 Unknown Rx methOCARBAMOL [Robaxin TAB] 500 mg PO Q6H PRN #15 tablet 11/13/18 Unknown Rx Dicyclomine [Bentyl] 20 mg PO QID #10 tablet 12/15/18 Unknown Rx Ibuprofen [Ibu] 600 mg PO Q6HR PRN #20 tablet 12/15/18 Unknown Rx methOCARBAMOL [Robaxin TAB] 500 mg PO Q6H PRN #14 tablet 12/15/18 Unknown Rx Allergies Allergy/AdvReac Type Severity Reaction Status Date / Time No Known Allergies Allergy Verified 02/23/19 11:59 ED Review of Systems ROS: Stated complaint: DIARRHEA/RAPID HEART BEAT Other details as noted in HPI Comment: All other systems reviewed and negative Constitutional: denies: chills, fever Cardiovascular: palpitations Gastrointestinal: diarrhea. denies: abdominal pain, nausea, vomiting Psychiatric: anxiety ED Past Medical Hx - Past Medical History Additional medical history: Hypercholesterolemia. Chronic lower back pain - Surgical History Additional Surgical History: sinus surgery @ age 17, surgery on umbilicus when he was 7 - Social History Smoking Status: Never Smoker Substance Use Type: None - Medications Home Medications: Home Medications Medication Instructions Recorded Confirmed Last Taken Type Clindamycin [Clindamycin CAP] 300 mg PO Q8H #30 cap 10/20/18 Unknown Rx HYDROcodone/APAP 5-325 [[place] 1 each PO Q6HR PRN #12 tablet 11/13/18 Unknown Rx 5/325] Ibuprofen [Motrin] 800 mg PO Q8HR PRN #20 tablet 11/13/18 Unknown Rx methOCARBAMOL [Robaxin TAB] 500 mg PO Q6H PRN #15 tablet 11/13/18 Unknown Rx Dicyclomine [Bentyl] 20 mg PO QID #10 tablet 12/15/18 Unknown Rx Ibuprofen [Ibu] 600 mg PO Q6HR PRN #20 tablet 12/15/18 Unknown Rx methOCARBAMOL [Robaxin TAB] 500 mg PO Q6H PRN #14 tablet 12/15/18 Unknown Rx ED Physical Exam - General Limitations: No Limitations General appearance: alert, in no apparent distress - Head Head exam: Present: atraumatic, normocephalic - Eye Eye exam: Present: normal appearance, PERRL, EOMI - ENT ENT exam: Present: mucous membranes moist - Neck Neck exam: Present: normal inspection - Respiratory Respiratory exam: Present: normal lung sounds bilaterally. Absent: respiratory distress - Cardiovascular Cardiovascular Exam: Present: regular rate, normal rhythm - GI/Abdominal GI/Abdominal exam: Present: soft. Absent: distended, tenderness - Extremities Exam Extremities exam: Present: normal inspection - Neurological Exam Neurological exam: Present: alert, oriented X3, CN II-XII intact. Absent: motor sensory deficit - Psychiatric Psychiatric exam: Present: normal affect, normal mood - Skin Skin exam: Present: warm, dry, intact, normal color ED Course Vital Signs 02/23/19 02/23/19 02/23/19 12:13 13:31 15:10 Temperature 98.2 F Pulse Rate 73 77 Respiratory 18 16 16 Rate Blood Pressure 137/94 Blood Pressure 138/89 [Right] O2 Sat by Pulse 100 98 Oximetry ED Medical Decision Making - Lab Data Result diagrams: 02/23/19 12:19 02/23/19 12:19 - EKG Data -: EKG Interpreted by In EKG shows normal: sinus rhythm, axis, QRS complexes, ST-T waves Rate: normal - EKG Data Interpretation: no acute changes, other (prolonged CT) - Radiology Data Radiology results: report reviewed, image reviewed - Medical Decision Making Patient reports lightheadedness, palpitations, diarrhea, jittery feeling after taking his vitamin D supplements. Workup today is normal. Vital signs are normal. He is currently feeling okay, back to his baseline. Advised patient against taking any more of supplements and advised to follow-up with his PCP. Return precautions given. Critical care attestation.: If time is entered above; I have spent that time in minutes in the direct care of this critically ill patient, excluding procedure time. ED Disposition Clinical Impression: Palpitations Disposition: DC-01 TO HOME OR SELFCARE Is pt being admited?: No Condition: Stable Instructions: Palpitations (ED) Referrals: PRIMARY CARE, [Referring] - 3-5 Days Time of Disposition: 15:42
[2019-02-23 15:11] VITALS: BP 138/89
== END 2019-02-23 16:10 | disposition home or self-care (01) ==
LOC: ED 11:58
DX: R00.2 Palpitations (principal); R42 Dizziness and giddiness; R19.7 Diarrhea, unspecified; E78.00 Pure hypercholesterolemia, unspecified; M54.5 Low back pain; G89.29 Other chronic pain; Z79.899 Other long term (current) drug therapy
CPT/HCPCS: 36415; 71046; 80053; 81001; 82962; 84484; 85027; 93005; 93010

== ENCOUNTER 2019-04-24 10:26 | Emergency (ER) | payer MEDICARE ==
[2019-04-24 10:42] VITALS: BP 140/95
[2019-04-24] MEDS ORDERED: ZOFRAN ODT PO ONE (11:03)
[2019-04-24] MEDS ORDERED: BENTYL PO ONE (11:03)
--- NOTE | 2019-04-24 11:52 | Emergency Department Report ---
Vomiting/Diarrhea - HPI Chief Complaint: Abdominal Pain Stated Complaint: POSSIBLE FOOD POISON Time Seen by Provider: 04/24/19 10:59 Duration: Today Severity: mild Nausea/Vomiting Severity: Mild Diarrhea Severity: Mild Pain Location: Generalized Symptoms: Yes Watery Diarrhea, Yes Able to Tolerate Fluids, Yes Recent Unusual Foods ([employer]), Yes Family w/ Similar Symptoms (child), No Bloody diarrhea, No Fever, No Recent Untreated Water, No Recent use of Antibiotics, No Contacts w/ Similar Symptoms, No Rash, No Hematuria, No Recent URI Symptoms Other History: 63-year-old male presents with watery diarrhea this morning after eating to topical last night for dinner. He denies fever assess chills/vomiting chest pain or any other problems ED Review of Systems ROS: Stated complaint: POSSIBLE FOOD POISON Other details as noted in HPI Comment: All other systems reviewed and negative ED Past Medical Hx - Past Medical History Previous Medical History?: Yes Additional medical history: Hypercholesterolemia. Chronic lower back pain - Surgical History Past Surgical History?: Yes Additional Surgical History: sinus surgery @ age 17, surgery on umbilicus when he was 7 - Social History Smoking Status: Never Smoker Substance Use Type: None - Medications Home Medications: Home Medications Medication Instructions Recorded Confirmed Last Taken Type Clindamycin [Clindamycin CAP] 300 mg PO Q8H #30 cap 10/20/18 Unknown Rx HYDROcodone/APAP 5-325 [[place] 1 each PO Q6HR PRN #12 tablet 11/13/18 Unknown Rx 5/325] Ibuprofen [Motrin] 800 mg PO Q8HR PRN #20 tablet 11/13/18 Unknown Rx methOCARBAMOL [Robaxin TAB] 500 mg PO Q6H PRN #15 tablet 11/13/18 Unknown Rx Dicyclomine [Bentyl] 20 mg PO QID #10 tablet 12/15/18 Unknown Rx Ibuprofen [Ibu] 600 mg PO Q6HR PRN #20 tablet 12/15/18 Unknown Rx methOCARBAMOL [Robaxin TAB] 500 mg PO Q6H PRN #14 tablet 12/15/18 Unknown Rx Dicyclomine [Bentyl] 20 mg PO BID #20 tablet 04/24/19 Unknown Rx Ondansetron [Zofran ODT TAB] 8 mg PO TID #20 tab.rapdis 04/24/19 Unknown Rx Vomiting Diarrhea Exam - Exam General: Vital signs noted. No distress. Alert and acting appropriately. HEENT: Yes Moist Mucous Membranes, No Pharyngeal Erythema, No Pharyngeal Exudates, No Rhinorrhea, No Conjuctival Injection, No Frontal Tenderness, No Maxillary Tenderness Neck: No Adenopathy, No Rigidity Lungs: Yes Clear Lung Sounds, Yes Good Air Exchange, No Wheezes, No Stridor, No Cough, No Nasal Flaring, No Retractions, No Use of Accessory Muscles Heart exam: Regular: Yes, Murmur: No, Tachycardia: No Abdomen: Tenderness: No, Peritoneal Signs: No, Distention: No, Hyperactive Bowel sounds: No Skin exam: Rash: No, Edema: No, Normal turgor: Yes Neurologic: Alert and oriented, no deficits. Musculoskeletal: Unremarkable. ED Course Vital Signs 04/24/19 04/24/19 10:40 10:51 Temperature 97.9 F Pulse Rate 67 Respiratory 20 17 Rate Blood Pressure 140/95 O2 Sat by Pulse 96 Oximetry ED Medical Decision Making - Medical Decision Making 63-year-old who presents with gastroenteritis. There was no vomiting or diarrhea in the ED. Patient received medication,reports feeling better. Nontender abdomen so scanning is not indicated Discussed follow-up with primary care physician. Patient is in no acute distress, vital signs are normal. Critical care attestation.: If time is entered above; I have spent that time in minutes in the direct care of this critically ill patient, excluding procedure time. ED Disposition Clinical Impression: Gastroenteritis Disposition: DC-01 TO HOME OR SELFCARE Is pt being admited?: No Does the pt Need Aspirin: No Condition: Stable Instructions: Acute Nausea and Vomiting (ED), Gastroenteritis (ED) Additional Instructions: Make sure to follow up with the primary care physician as discussed. Take all your medications as you've been prescribed. If you have any worsening symptoms or develop new symptoms please return to ED immediately. Prescriptions: Dicyclomine [Bentyl] 20 mg PO BID #20 tablet Ondansetron [Zofran ODT TAB] 8 mg PO TID #20 tab.[place] Referrals: SCOTTY FISH MD [Primary Care Provider] - 3-5 Days Time of Disposition: 11:57
== END 2019-04-24 12:15 | disposition home or self-care (01) ==
LOC: ED 10:26
DX: K52.9 Noninfective gastroenteritis and colitis, unspecified (principal); M54.5 Low back pain; G89.29 Other chronic pain; E78.00 Pure hypercholesterolemia, unspecified; Z98.890 Other specified postprocedural states; Z79.1 Long term (current) use of non-steroidal anti-inflammatories (NSAID); Z79.899 Other long term (current) drug therapy
CPT/HCPCS: 99282; Q0162

== ENCOUNTER 2019-04-30 17:19 | Emergency (ER) | payer MEDICARE ==
[2019-04-30 17:45] VITALS: BP 144/78
--- NOTE | 2019-04-30 17:51 | Event Note ---
ED Screening Note ED Screening Note: seen last weak for n/v kids where sick too they got better he did not reports dizzy/nausea/weak pmh hpld psh hernia rx none denies c/e/d mom 83 yo dad pna This initial assessment/diagnostic orders/clinical plan/treatment(s) is/are subject to change based on patients health status, clinical progression and re- assessment by fellow clinical providers in the ED. Further treatment and workup at subsequent clinical providers discretion. Patient/guardian urged not to elope from the ED as their condition may be serious if not clinically assessed and managed. Initial orders include: basic labs ekg
[2019-04-30 18:43] LABS: Basophils % (Auto) 0.4 % (0.0-1.8); Eosinophils # (Auto) 0.1 K/mm3 (0.0-0.4); Eosinophils % (Auto) 1.8 % (0.0-4.3); Hematocrit 43.6 % (35.5-45.6); Hemoglobin 15.1 gm/dl (11.8-15.2); Lymphocytes # (Auto) 1.8 K/mm3 (1.2-5.4); Lymphocytes % (Auto) 39.6 % (13.4-35.0); Mean Corpuscular HGB Conc 35 % (32-34); Mean Corpuscular Volume 90 fl (84-94); Monocytes # (Auto) 0.7 K/mm3 (0.0-0.8); Monocytes % (Auto) 15.2 % (0.0-7.3); Platelet Count 162 K/mm3 (140-440); Red Blood Count 4.86 M/mm3 (3.65-5.03); Red Cell Distribution Width 12.9 % (13.2-15.2)
[2019-04-30 18:44] LABS: Bilirubin,Urine NEG (Negative); Blood,Urine NEG (Negative); Color,Urine Colorless (Yellow); Protein,Urine <15 mg/dL mg/dL (Negative); Urobilinogen,Urine < 2.0 mg/dL (<2.0); WBC,Urine < 1.0 /HPF (0.0-6.0)
[2019-04-30 18:57] LABS: Alanine Aminotransferase 20 units/L (7-56); Albumin 4.3 g/dL (3.9-5); BUN/Creatinine Ratio 8; Blood Urea Nitrogen 11 mg/dL (9-20); Calcium 9.6 mg/dL (8.4-10.2); Hemolysis Index 23
[2019-04-30] MEDS ORDERED: ZOFRAN ODT PO ONE (19:19)
--- NOTE | 2019-04-30 21:37 | Emergency Department Report ---
ED N/V/D HPI - General Chief complaint: Nausea/Vomiting/Diarrhea Stated complaint: LIGHTHEADED/DIZZINESS Time Seen by Provider: 04/30/19 17:48 Source: patient Mode of arrival: Ambulatory Limitations: No Limitations - History of Present Illness Initial comments: pt is a 63 y/o aam who presents for dizziness s/p n/v/d x 1 week, entiro family has same symptoms last week but his are starting now. pt states symptoms are improving now is tolerating po intake , there is no fever or chills does note intermittent dizziness and nausea , no sob no cp no diarrhea no back pain. MD complaint: nausea, vomiting, diarrhea Onset/Timin -: week(s) Description of Vomiting: food contents Description of Diarrhea: water Associated Abdominal Pain: No Location: LLQ Radiation: none Severity: moderate Pain Scale: 2 Quality: cramping Consistency: intermittent Improves with: none Worsens with: none Context: sick contacts Associated Symptoms: nausea/vomiting - Related Data Previous Rx's Medication Instructions Recorded Last Taken Type Clindamycin [Clindamycin CAP] 300 mg PO Q8H #30 cap 10/20/18 Unknown Rx HYDROcodone/APAP 5-325 [[place] 1 each PO Q6HR PRN #12 tablet 11/13/18 Unknown Rx 5/325] Ibuprofen [Motrin] 800 mg PO Q8HR PRN #20 tablet 11/13/18 Unknown Rx methOCARBAMOL [Robaxin TAB] 500 mg PO Q6H PRN #15 tablet 11/13/18 Unknown Rx Dicyclomine [Bentyl] 20 mg PO QID #10 tablet 12/15/18 Unknown Rx Ibuprofen [Ibu] 600 mg PO Q6HR PRN #20 tablet 12/15/18 Unknown Rx methOCARBAMOL [Robaxin TAB] 500 mg PO Q6H PRN #14 tablet 12/15/18 Unknown Rx Dicyclomine [Bentyl] 20 mg PO BID #20 tablet 04/24/19 Unknown Rx Ondansetron [Zofran ODT TAB] 8 mg PO TID #20 tab.rapdis 04/24/19 Unknown Rx Ondansetron [Zofran Odt] 4 mg PO Q8HR #12 tab.rapdis 04/30/19 Unknown Rx Allergies Allergy/AdvReac Type Severity Reaction Status Date / Time No Known Allergies Allergy Verified 02/23/19 11:59 ED Review of Systems ROS: Stated complaint: LIGHTHEADED/DIZZINESS Other details as noted in HPI Constitutional: denies: chills, fever Eyes: denies: eye pain, eye discharge, vision change ENT: denies: ear pain, throat pain Respiratory: denies: cough, shortness of breath, wheezing Cardiovascular: denies: chest pain, palpitations Endocrine: no symptoms reported Gastrointestinal: nausea, vomiting. denies: abdominal pain, diarrhea, constipation, melena Genitourinary: denies: urgency, dysuria Musculoskeletal: denies: back pain, joint swelling, arthralgia Skin: denies: rash, lesions Neurological: denies: headache, weakness, paresthesias Psychiatric: denies: anxiety, depression Hematological/Lymphatic: denies: easy bleeding, easy bruising ED Past Medical Hx - Past Medical History Additional medical history: Hypercholesterolemia. Chronic lower back pain - Surgical History Additional Surgical History: sinus surgery @ age 17, surgery on umbilicus when he was 7 - Social History Smoking Status: Never Smoker Substance Use Type: None - Medications Home Medications: Home Medications Medication Instructions Recorded Confirmed Last Taken Type Clindamycin [Clindamycin CAP] 300 mg PO Q8H #30 cap 10/20/18 Unknown Rx HYDROcodone/APAP 5-325 [[place] 1 each PO Q6HR PRN #12 tablet 11/13/18 Unknown Rx 5/325] Ibuprofen [Motrin] 800 mg PO Q8HR PRN #20 tablet 11/13/18 Unknown Rx methOCARBAMOL [Robaxin TAB] 500 mg PO Q6H PRN #15 tablet 11/13/18 Unknown Rx Dicyclomine [Bentyl] 20 mg PO QID #10 tablet 12/15/18 Unknown Rx Ibuprofen [Ibu] 600 mg PO Q6HR PRN #20 tablet 12/15/18 Unknown Rx methOCARBAMOL [Robaxin TAB] 500 mg PO Q6H PRN #14 tablet 12/15/18 Unknown Rx Dicyclomine [Bentyl] 20 mg PO BID #20 tablet 04/24/19 Unknown Rx Ondansetron [Zofran ODT TAB] 8 mg PO TID #20 tab.rapdis 04/24/19 Unknown Rx Ondansetron [Zofran Odt] 4 mg PO Q8HR #12 tab.rapdis 04/30/19 Unknown Rx ED Physical Exam - General Limitations: No Limitations General appearance: alert, in no apparent distress - Head Head exam: Present: atraumatic, normocephalic - Eye Eye exam: Present: normal appearance, PERRL, EOMI Pupils: Present: normal accommodation - ENT ENT exam: Present: normal orophraynx, mucous membranes moist - Neck Neck exam: Present: normal inspection, full ROM. Absent: tenderness - Respiratory Respiratory exam: Present: normal lung sounds bilaterally. Absent: respiratory distress, wheezes, stridor, chest wall tenderness - Cardiovascular Cardiovascular Exam: Present: regular rate, normal rhythm, normal heart sounds. Absent: systolic murmur, diastolic murmur, rubs, gallop - GI/Abdominal GI/Abdominal exam: Present: soft, normal bowel sounds. Absent: distended, tend erness, guarding, rebound, rigid, bruit, hernia - Rectal Rectal exam: Present: deferred - Extremities Exam Extremities exam: Present: normal inspection - Back Exam Back exam: Present: normal inspection, full ROM. Absent: tenderness, CVA tenderness (R), CVA tenderness (L), muscle spasm, paraspinal tenderness, vertebral tenderness, rash noted - Neurological Exam Neurological exam: Present: alert, oriented X3, CN II-XII intact, normal gait - Psychiatric Psychiatric exam: Present: normal affect, normal mood - Skin Skin exam: Present: warm ED Course Vital Signs 04/30/19 17:41 Temperature 98.2 F Pulse Rate 64 Respiratory 16 Rate Blood Pressure 144/78 O2 Sat by Pulse 99 Oximetry ED Medical Decision Making - Lab Data Result diagrams: 04/30/19 18:11 04/30/19 18:11 Labs 04/30/19 04/30/19 04/30/19 18:11 18:11 18:17 WBC 4.5 RBC 4.86 Hgb 15.1 Hct 43.6 MCV 90 MCH 31 MCHC 35 H RDW 12.9 L Plt Count 162 Lymph % (Auto) 39.6 H [place] % (Auto) 15.2 H Eos % (Auto) 1.8 Baso % (Auto) 0.4 Lymph # 1.8 [place] # 0.7 Eos # 0.1 Baso # 0.0 Seg Neutrophils % 43.0 Seg Neutrophils # 1.9 Sodium 139 Potassium 4.4 Chloride 101.3 Carbon Dioxide 25 Anion Gap 17 BUN 11 Creatinine 1.3 Estimated GFR > 60 BUN/Creatinine Ratio 8 Glucose 86 Calcium 9.6 Total Bilirubin 0.50 AST 22 ALT 20 Alkaline Phosphatase 56 Troponin T < 0.010 Total Protein 7.5 Albumin 4.3 Albumin/Globulin Ratio 1.3 Urine Color Colorless Urine Turbidity Clear Urine pH 7.0 Ur Specific [place] 1.006 Urine Protein <15 mg/dl Urine Glucose (UA) Neg Urine Ketones Neg Urine Blood Neg Urine Nitrite Neg Urine Bilirubin Neg Urine Urobilinogen < 2.0 Ur Leukocyte Esterase Neg Urine WBC (Auto) < 1.0 Urine RBC (Auto) 2.0 - EKG Data EKG shows normal: sinus rhythm, axis, intervals, QRS complexes, ST-T waves Rate: normal - EKG Data When compared to previous EKG there are: no significant change Interpretation: normal EKG (ekg interp by ed attending NSR no ST Elevated IN ) - Medical Decision Making ekg nsr labs normal pt declines xray pt is tolerating po intake at this time states symptoms resolved with zofran ODT plan dc with rx for Zofran ODT conitnue to hydrate follow up with pcp in 2-3 days pt verbalized agreement and u nderstanding of discharge plan. Critical care attestation.: If time is entered above; I have spent that time in minutes in the direct care of this critically ill patient, excluding procedure time. ED Disposition Clinical Impression: Nausea and vomiting Qualifiers: Vomiting type: unspecified Vomiting Intractability: non-intractable Qualified Code(s): R11.2 - Nausea with vomiting, unspecified Disposition: DC-01 TO HOME OR SELFCARE Is pt being admited?: No Does the pt Need Aspirin: No Condition: Stable Instructions: Acute Nausea and Vomiting (ED) Prescriptions: Ondansetron [Zofran Odt] 4 mg PO Q8HR #12 tab.rapdis Referrals: PRIMARY CARE, [Primary Care Provider] - 3-5 Days Forms: Work/School Release Form(ED) Time of Disposition: 21:44
== END 2019-04-30 22:00 | disposition home or self-care (01) ==
LOC: ED 17:19
DX: R11.2 Nausea with vomiting, unspecified (principal); R19.7 Diarrhea, unspecified; R42 Dizziness and giddiness; G89.29 Other chronic pain; E78.00 Pure hypercholesterolemia, unspecified; Z98.890 Other specified postprocedural states; Z79.899 Other long term (current) drug therapy
CPT/HCPCS: 36415; 80053; 81001; 84484; 85025; 93005; 93010; Q0162

== ENCOUNTER 2020-06-03 15:36 | Emergency (ER) | payer MEDICARE ==
[2020-06-03 15:50] VITALS: BP 143/87
== END 2020-06-03 18:35 | disposition left against medical advice (07) ==
LOC: ED 15:36
DX: M54.89 Other dorsalgia (principal); Z53.21 Procedure and treatment not carried out due to patient leaving prior to being seen by health care provider

== ENCOUNTER 2020-06-05 01:22 | Emergency (ER) | payer MEDICARE ==
[2020-06-05] MEDS ORDERED: ALUM-MAG HYDROXIDE-SIMETHICONE 200-200-20MG/5ML ORAL LIQD 30 ML PO ONE (04:32)
--- NOTE | 2020-06-05 04:40 | Emergency Department Report ---
Blank Doc - Documentation Documentation: 64-year-old male presents to the hospital planing of intermittent flush feeling, lightheadedness, intermittent GERD symptoms Patient took Motrin for back pain 2 days ago. He then took vitamin D on empty stomach yesterday (06/04). Within 30 minutes of taking medication he felt flushed all over with intermittent lightheadedness as well as intermittent GERD symptoms throughout the day and evening. Patient seems to think it is due to a possible interaction between the Motrin and vitamin D although he took the Motrin the previous day. labs pending nonspecific ekg abnormalities noted, no stemi maalox provided for gerd symptoms pt to be evaluated by oncoming provider.
[2020-06-05 05:01] LABS: Basophils # (Auto) 0.1 K/mm3 (0.0-0.1); Basophils % (Auto) 1.5 % (0.0-1.8); Eosinophils # (Auto) 0.1 K/mm3 (0.0-0.4); Eosinophils % (Auto) 2.5 % (0.0-4.3); Hematocrit 43.7 % (35.5-45.6); Hemoglobin 15.2 gm/dl (11.8-15.2); Lymphocytes # (Auto) 2.1 K/mm3 (1.2-5.4); Lymphocytes % (Auto) 43.2 % (13.4-35.0); Mean Corpuscular HGB Conc 35 % (32-34); Mean Corpuscular Volume 91 fl (84-94); Monocytes # (Auto) 0.5 K/mm3 (0.0-0.8); Monocytes % (Auto) 9.5 % (0.0-7.3); Platelet Count 188 K/mm3 (140-440); Red Blood Count 4.81 M/mm3 (3.65-5.03)
[2020-06-05 05:14] LABS: Alanine Aminotransferase 18 units/L (7-56); Albumin 4.8 g/dL (3.9-5); BUN/Creatinine Ratio 9; Blood Urea Nitrogen 10 mg/dL (9-20); Calcium 10.1 mg/dL (8.4-10.2); Hemolysis Index 23
[2020-06-05 06:11] LABS: Bacteria,Urine 1+ /HPF (Negative); Bilirubin,Urine NEG (Negative); Blood,Urine NEG (Negative); Color,Urine Straw (Yellow); Protein,Urine <15 mg/dL mg/dL (Negative); Urobilinogen,Urine < 2.0 mg/dL (<2.0); WBC,Urine < 1.0 /HPF (0.0-6.0)
--- NOTE | 2020-06-05 06:31 | Emergency Department Report ---
ED Abdominal Pain HPI - General Chief Complaint: Weakness Stated Complaint: REACTION FROM MEDICATION Time Seen by Provider: 06/05/20 04:32 Source: patient Mode of arrival: Ambulatory Limitations: No Limitations - History of Present Illness Initial Comments: Patient is a 64-year-old F [place] male who has a past medical history of chronic low back pain history of prostate cancer who is presenting with some symptoms after taking a vitamin D and Motrin. Patient states yesterday he started having some acute on chronic back pain. He took ibuprofen and his vitamin D medication both on empty stomach. Several hours later patient started having some mild burning to the skin and itchiness. This is resolved. Patient also states he was having a great deal of acid reflux when lying down and had several episodes of diarrhea. Patient was unable to stop the symptoms at home so he came to the emergency department to be evaluated. He is denying any na usea vomiting fevers chills cough cold congestion at this time. Patient states he actually feels somewhat improved. - Related Data Previous Rx's Medication Instructions Recorded Last Taken Type Clindamycin [Clindamycin CAP] 300 mg PO Q8H #30 cap 10/20/18 Unknown Rx HYDROcodone/APAP 5-325 [Forman 1 each PO Q6HR PRN #12 tablet 11/13/18 Unknown Rx 5/325] Ibuprofen [Motrin] 800 mg PO Q8HR PRN #20 tablet 11/13/18 Unknown Rx methOCARBAMOL [Robaxin TAB] 500 mg PO Q6H PRN #15 tablet 11/13/18 Unknown Rx Dicyclomine [Bentyl] 20 mg PO QID #10 tablet 12/15/18 Unknown Rx Ibuprofen [Ibu] 600 mg PO Q6HR PRN #20 tablet 12/15/18 Unknown Rx methOCARBAMOL [Robaxin TAB] 500 mg PO Q6H PRN #14 tablet 12/15/18 Unknown Rx Dicyclomine [Bentyl] 20 mg PO BID #20 tablet 04/24/19 Unknown Rx Ondansetron [Zofran ODT TAB] 8 mg PO TID #20 tab.rapdis 04/24/19 Unknown Rx Ondansetron [Zofran Odt] 4 mg PO Q8HR #12 tab.rapdis 04/30/19 Unknown Rx Dicyclomine [Bentyl] 20 mg PO QID #10 tablet 06/05/20 Unknown Rx Famotidine [Pepcid] 40 mg PO QHS #10 tablet 06/05/20 Unknown Rx Allergies Allergy/AdvReac Type Severity Reaction Status Date / Time No Known Allergies Allergy Verified 02/23/19 11:59 ED Review of Systems ROS: Stated complaint: REACTION FROM MEDICATION Other details as noted in HPI Comment: All other systems reviewed and negative ED Past Medical Hx - Past Medical History Previous Medical History?: No Additional medical history: Hypercholesterolemia. Chronic lower back pain. Prostate CA - Surgical History Additional Surgical History: sinus surgery @ age 17, surgery on umbilicus when he was 7 - Social History Smoking Status: Never Smoker Substance Use Type: None - Medications Home Medications: Home Medications Medication Instructions Recorded Confirmed Last Taken Type Clindamycin [Clindamycin CAP] 300 mg PO Q8H #30 cap 10/20/18 Unknown Rx HYDROcodone/APAP 5-325 [Forman 1 each PO Q6HR PRN #12 tablet 11/13/18 Unknown Rx 5/325] Ibuprofen [Motrin] 800 mg PO Q8HR PRN #20 tablet 11/13/18 Unknown Rx methOCARBAMOL [Robaxin TAB] 500 mg PO Q6H PRN #15 tablet 11/13/18 Unknown Rx Dicyclomine [Bentyl] 20 mg PO QID #10 tablet 12/15/18 Unknown Rx Ibuprofen [Ibu] 600 mg PO Q6HR PRN #20 tablet 12/15/18 Unknown Rx methOCARBAMOL [Robaxin TAB] 500 mg PO Q6H PRN #14 tablet 12/15/18 Unknown Rx Dicyclomine [Bentyl] 20 mg PO BID #20 tablet 04/24/19 Unknown Rx Ondansetron [Zofran ODT TAB] 8 mg PO TID #20 tab.rapdis 04/24/19 Unknown Rx Ondansetron [Zofran Odt] 4 mg PO Q8HR #12 tab.rapdis 04/30/19 Unknown Rx Dicyclomine [Bentyl] 20 mg PO QID #10 tablet 06/05/20 Unknown Rx Famotidine [Pepcid] 40 mg PO QHS #10 tablet 06/05/20 Unknown Rx ED Physical Exam - General Limitations: No Limitations General appearance: alert, in no apparent distress - Head Head exam: Present: atraumatic, normocephalic - Eye Eye exam: Present: normal appearance, PERRL, EOMI - ENT ENT exam: Present: mucous membranes moist - Neck Neck exam: Present: normal inspection - Respiratory Respiratory exam: Present: normal lung sounds bilaterally. Absent: respiratory distress, wheezes, rales, rhonchi - Cardiovascular Cardiovascular Exam: Present: regular rate, normal rhythm. Absent: systolic murmur, diastolic murmur, rubs, gallop - GI/Abdominal GI/Abdominal exam: Present: soft, hyperactive bowel sounds. Absent: distended, tenderness, guarding, rebound, rigid, normal bowel sounds - Rectal Rectal exam: Present: deferred - Extremities Exam Extremities exam: Present: normal inspection - Back Exam Back exam: Present: normal inspection - Neurological Exam Neurological exam: Present: alert, oriented X3 - Psychiatric Psychiatric exam: Present: normal affect, normal mood - Skin Skin exam: Present: warm, dry, intact, normal color. Absent: rash ED Course Vital Signs 06/05/20 06/05/20 01:57 05:15 Temperature 98.1 F Pulse Rate 61 58 L Respiratory 18 18 Rate Blood Pressure 146/88 150/77 O2 Sat by Pulse 100 97 Oximetry ED Medical Decision Making - Lab Data Result diagrams: 06/05/20 04:38 06/05/20 04:38 Lab Results 06/05/20 06/05/20 06/05/20 Range/Units 04:38 04:38 05:18 WBC 4.8 (4.5-11.0) K/mm3 RBC 4.81 (3.65-5.03) M/mm3 Hgb 15.2 (11.8-15.2) gm/dl Hct 43.7 (35.5-45.6) % MCV 91 (84-94) fl MCH 32 (28-32) pg MCHC 35 H (32-34) % RDW 13.0 L (13.2-15.2) % Plt Count 188 (140-440) K/mm3 Lymph % (Auto) 43.2 H (13.4-35.0) % Gaines % (Auto) 9.5 H (0.0-7.3) % Eos % (Auto) 2.5 (0.0-4.3) % Baso % (Auto) 1.5 (0.0-1.8) % Lymph # (Auto) 2.1 (1.2-5.4) K/mm3 Gaines # (Auto) 0.5 (0.0-0.8) K/mm3 Eos # (Auto) 0.1 (0.0-0.4) K/mm3 Baso # (Auto) 0.1 (0.0-0.1) K/mm3 Seg Neutrophils % 43.3 (40.0-70.0) % Seg Neutrophils # 2.1 (1.8-7.7) K/mm3 Sodium 139 (137-145) mmol/L Potassium 4.3 (3.6-5.0) mmol/L Chloride 100.4 (98-107) mmol/L Carbon Dioxide 28 (22-30) mmol/L Anion Gap 15 mmol/L BUN 10 (9-20) mg/dL Creatinine 1.1 (0.8-1.3) mg/dL Estimated GFR > 60 ml/min BUN/Creatinine Ratio 9 % Glucose 112 H (75-100) mg/dL Calcium 10.1 (8.4-10.2) mg/dL Total Bilirubin 0.20 (0.1-1.2) mg/dL AST 20 (5-40) units/L ALT 18 (7-56) units/L Alkaline Phosphatase 60 (35-129) units/L Troponin T < 0.010 (0.00-0.029) ng/mL Total Protein 7.9 (6.3-8.2) g/dL Albumin 4.8 (3.9-5) g/dL Albumin/Globulin Ratio 1.5 % Urine Color Straw (Yellow) Urine Turbidity Clear (Clear) Urine pH 6.0 (5.0-7.0) Ur Specific Solomon 1.005 (1.003-1.030) Urine Protein <15 mg/dl (Negative) mg/dL Urine Glucose (UA) Neg (Negative) mg/dL Urine Ketones Neg (Negative) mg/dL Urine Blood Neg (Negative) Urine Nitrite Neg (Negative) Urine Bilirubin Neg (Negative) Urine Urobilinogen < 2.0 (<2.0) mg/dL Ur Leukocyte Esterase Neg (Negative) Urine WBC (Auto) < 1.0 (0.0-6.0) /HPF Urine RBC (Auto) 1.0 (0.0-6.0) /HPF Urine Bacteria (Auto) 1+ (Negative) /HPF - Medical Decision Making Patient could have had some mild reaction to the ibuprofen since he did have burning sensation to the skin with some itchiness initially however this is resolved. Patient can continue to take Benadryl as needed for any allergic reactions. Patient also likely developed some GERD symptoms from taking ibuprofen and vitamin D on empty stomach. Patient has some mild diarrhea which also could be related to this medication reaction. Patient to be started on Pepcid and will be discharged home. Critical care attestation.: If time is entered above; I have spent that time in minutes in the direct care of this critically ill patient, excluding procedure time. ED Disposition Clinical Impression: Medication reaction Qualifiers: Encounter type: initial encounter Qualified Code(s): T50.905A - Adverse effect of unspecified drugs, medicaments and biological substances, initial encounter GERD (gastroesophageal reflux disease) Qualifiers: Esophagitis presence: without esophagitis Qualified Code(s): K21.9 - Gastro- esophageal reflux disease without esophagitis Disposition: - TO HOME OR SELFCARE Is pt being admited?: No Does the pt Need Aspirin: No Condition: Stable Instructions: Diet for Ulcers and Gastritis (ED), Gastroesophageal Reflux Disease (ED) Additional Instructions: Because of the burning sensation and mild itching you may have had mild allergic reaction to either the ibuprofen or vitamin D. Please take Benadryl as needed for the symptoms. Pepcid will be added to help with your acid reflux type symptoms. Always ensure that you take ibuprofen on a full stomach Referrals: PRIMARY CARE [Primary Care Provider] - 3-5 Days Time of Disposition: 06:31
[2020-06-05 06:54] VITALS: BP 141/82
== END 2020-06-05 06:53 | disposition home or self-care (01) ==
LOC: ED 01:22
DX: L29.9 Pruritus, unspecified (principal); T39.315A Adverse effect of propionic acid derivatives, initial encounter; K21.9 Gastro-esophageal reflux disease without esophagitis; Z98.890 Other specified postprocedural states; Z79.1 Long term (current) use of non-steroidal anti-inflammatories (NSAID); Z79.2 Long term (current) use of antibiotics; Z79.899 Other long term (current) drug therapy; Y92.89 Other specified places as the place of occurrence of the external cause
CPT/HCPCS: 36415; 80053; 81001; 84484; 85025; 93005

== ENCOUNTER 2021-07-04 03:28 | Emergency (ER) | payer MEDICARE ==
[2021-07-04 03:35] VITALS: BP 153/102
[2021-07-04] MEDS ORDERED: ONDANSETRON 4 MG ODT TAB PO ONE (03:54)
[2021-07-04] MEDS ORDERED: HYDROcodone/ACETAMINOPHEN 5-325 MG TAB PO ONE (03:54)
[2021-07-04] MEDS ORDERED: IBUPROFEN 600 MG TAB PO ONE (03:54)
--- NOTE | 2021-07-04 04:19 | XRay Report ---
LEFT SHOULDER 3 VIEWS INDICATION: Pain - Footbal injury. COMPARISON: No relevant prior imaging study available. FINDINGS: No acute fracture or dislocation. Mild degenerative changes are noted. No soft tissue swelling or for eign bodies. IMPRESSION: 1. No acute findings. Signer Name: Tyler Story MD Signed: 07/04/2021 4:14 AM Workstation Name: [id number]
--- NOTE | 2021-07-04 04:41 | Emergency Department Report ---
ED Upper Extremity Inj HPI - General Chief Complaint: Shoulder Injury Stated Complaint: LT SHOULDER PAIN Source: patient Mode of arrival: Ambulatory Limitations: No Limitations - History of Present Illness Initial Comments: Patient is a 65-year-old -[place] male with a history of prostate cancer in remission who presents to the ED with complaint of acute onset persistent severe left shoulder pain after being elbowed on the left shoulder when playing basketball 2 weeks ago. Patient states that the pain has been persistently getting worse patient in the last 5 days. Patient states that he has been taking [id number] medications with no relief. Patient states the pain is especially worse with any active range of motion of the left shoulder. Patient denies fall, dizziness, syncope, chest pain, shortness of breath, back pain, neck pain, headache, numbness and tingling or weakness of left arm. MD Complaint: Injury to:: left, shoulder -: Sudden, week(s) (2) Other Extremity Injury: Shoulder: Left (left shoulder) Other Injuries: none Handedness: right Place: outdoors Severity scale (0 -10): 8 Improves With: none Worsens With: movement of extremity Context: direct blow (elbowed on the shoulder during basket ball game) Associated Symptoms: denies other symptoms. denies: numbness, neck pain, suspects foreign body, nausea/vomiting, heard/felt popping sensat Treatments Prior to Arrival: NSAIDS - Related Data Previous Rx's Medication Instructions Recorded Last Taken Type Clindamycin [Clindamycin CAP] 300 mg PO Q8H #30 cap 10/20/18 Unknown Rx HYDROcodone/APAP 5-325 [Lamont 1 each PO Q6HR PRN #12 tablet 11/13/18 Unknown Rx 5/325] Dicyclomine [Bentyl] 20 mg PO QID #10 tablet 12/15/18 Unknown Rx Ibuprofen [Ibu] 600 mg PO Q6HR PRN #20 tablet 12/15/18 Unknown Rx methOCARBAMOL [Robaxin TAB] 500 mg PO Q6H PRN #14 tablet 12/15/18 Unknown Rx Dicyclomine [Bentyl] 20 mg PO BID #20 tablet 04/24/19 Unknown Rx Ondansetron [Zofran ODT TAB] 8 mg PO TID #20 tab.rapdis 04/24/19 Unknown Rx Ondansetron [Zofran Odt] 4 mg PO Q8HR #12 tab.rapdis 04/30/19 Unknown Rx Dicyclomine [Bentyl] 20 mg PO QID #10 tablet 06/05/20 Unknown Rx Famotidine [Pepcid] 40 mg PO QHS #10 tablet 06/05/20 Unknown Rx Ibuprofen [Motrin 800 MG tab] 800 mg PO Q8HR PRN #30 tablet 07/04/21 Unknown Rx methOCARBAMOL [Robaxin TAB] 500 mg PO Q8H PRN #15 tablet 07/04/21 Unknown Rx Allergies Allergy/AdvReac Type Severity Reaction Status Date / Time No Known Allergies Allergy Verified 02/23/19 11:59 ED Review of Systems ROS: Stated complaint: LT SHOULDER PAIN Other details as noted in HPI Constitutional: denies: chills, fever Eyes: denies: eye pain, eye discharge, vision change ENT: denies: ear pain, throat pain Respiratory: denies: cough, shortness of breath, wheezing Cardiovascular: denies: chest pain, palpitations Endocrine: no symptoms reported Gastrointestinal: denies: abdominal pain, nausea, diarrhea Genitourinary: denies: urgency, dysuria Musculoskeletal: arthralgia (left shoulder pain). denies: back pain, joint swelling Skin: denies: rash, lesions Neurological: denies: headache, weakness, paresthesias Psychiatric: denies: anxiety, depression Hematological/Lymphatic: denies: easy bleeding, easy bruising ED Past Medical Hx - Past Medical History Hx of Cancer: Yes (prostate) Additional medical history: Hypercholesterolemia. Chronic lower back pain. Prostate CA - Surgical History Additional Surgical History: sinus surgery @ age 17, surgery on umbilicus when he was 7 - Social History Smoking Status: Never Smoker Substance Use Type: None - Medications Home Medications: Home Medications Medication Instructions Recorded Confirmed Last Taken Type Clindamycin [Clindamycin CAP] 300 mg PO Q8H #30 cap 10/20/18 Unknown Rx HYDROcodone/APAP 5-325 [Lamont 1 each PO Q6HR PRN #12 tablet 11/13/18 Unknown Rx 5/325] Dicyclomine [Bentyl] 20 mg PO QID #10 tablet 12/15/18 Unknown Rx Ibuprofen [Ibu] 600 mg PO Q6HR PRN #20 tablet 12/15/18 Unknown Rx methOCARBAMOL [Robaxin TAB] 500 mg PO Q6H PRN #14 tablet 12/15/18 Unknown Rx Dicyclomine [Bentyl] 20 mg PO BID #20 tablet 04/24/19 Unknown Rx Ondansetron [Zofran ODT TAB] 8 mg PO TID #20 tab.rapdis 04/24/19 Unknown Rx Ondansetron [Zofran Odt] 4 mg PO Q8HR #12 tab.rapdis 04/30/19 Unknown Rx Dicyclomine [Bentyl] 20 mg PO QID #10 tablet 06/05/20 Unknown Rx Famotidine [Pepcid] 40 mg PO QHS #10 tablet 06/05/20 Unknown Rx Ibuprofen [Motrin 800 MG tab] 800 mg PO Q8HR PRN #30 tablet 07/04/21 Unknown Rx methOCARBAMOL [Robaxin TAB] 500 mg PO Q8H PRN #15 tablet 07/04/21 Unknown Rx ED Physical Exam - General Limitations: No Limitations General appearance: alert, in no apparent distress - Head Head exam: Present: atraumatic, normocephalic, normal inspection - Eye Eye exam: Present: normal appearance, PERRL, EOMI Pupils: Present: normal accommodation - ENT ENT exam: Present: normal exam, normal orophraynx, mucous membranes moist, TM's normal bilaterally, normal external ear exam - Neck Neck exam: Present: normal inspection, full ROM. Absent: tenderness - Respiratory Respiratory exam: Present: normal lung sounds bilaterally. Absent: respiratory distress, wheezes, chest wall tenderness, accessory muscle use, decreased breath sounds - Cardiovascular Cardiovascular Exam: Present: regular rate, normal rhythm, normal heart sounds. Absent: systolic murmur, diastolic murmur, rubs, gallop - GI/Abdominal GI/Abdominal exam: Present: soft, normal bowel sounds. Absent: tenderness, guarding, rebound, hyperactive bowel sounds, hypoactive bowel sounds, organomegaly - Extremities Exam Extremities exam: Present: normal inspection, full ROM, tenderness (palpable left shoulder tenderness), normal capillary refill - Back Exam Back exam: Present: normal inspection, full ROM. Absent: tenderness, CVA tenderness (R), CVA tenderness (L), muscle spasm, paraspinal tenderness - Neurological Exam Neurological exam: Present: alert, oriented X3, CN II-XII intact, normal gait, reflexes normal - Psychiatric Psychiatric exam: Present: normal affect, normal mood - Skin Skin exam: Present: warm, dry, intact, normal color. Absent: rash ED Course Vital Signs 07/04/21 03:32 Temperature 98.2 F Pulse Rate 64 Respiratory 17 Rate Blood Pressure 153/102 [Right] O2 Sat by Pulse 98 Oximetry ED Medical Decision Making - Radiology Data Radiology results: report reviewed, image reviewed [facility] [address] [place] [address] XRay Report Signed Patient: BYRON OLSEN MR#: [id number] 3 : 1955 Acct:[id number] Age/Sex: 65 / M ADM Date: 07/04/21 Loc: ED Attending Dr: Ordering Physician: DENISE MILIAN Date of Service: 07/04/21 Procedure(s): XR shoulder 2+V LT Accession Number(s): [id number] cc: DENISE MILIAN Fluoro Time In Minutes: LEFT SHOULDER 3 VIEWS INDICATION: Pain - Footbal injury. COMPARISON: No relevant prior imaging study available. FINDINGS: No acute fracture or dislocation. Mild degenerative changes are noted. No soft tissue swelling or foreign bodies. IMPRESSION: 1. No acute findings. Signer Name: Tyler Story MD Signed: 07/04/2021 4:14 AM Workstation Name: [id number] Transcribed By: BRYCE Dictated By: Tyler Story MD Electronically Authenticated By: Tyler Story MD Signed Date/Time: 07/04/21413 DD/ 3 TD/TT: - Medical Decision Making This is a 65-year-old -[place] male with a history of prostate cancer in remission who presents to the ED with complaint of acute onset persistent severe left shoulder pain after being elbowed on the left shoulder when playing basketball 2 weeks ago. Patient states that the pain has been persistently getting worse patient in the last 5 days. Patient states that he has been taking [id number]-[id number] medications with no relief. Patient states the pain is especially worse with any active range of motion of the left shoulder. In the ED, patient is alert and oriented x3 and is not in any distress but appears to be in pain. Patient was treated for pain in the ED. Left shoulder x-ray showed no acute fractures or subluxations but degenerative joint disease. Patient was therefore discharged home on pain medications and advised to follow-up with his primary care physician in 5 to 7 days for reevaluation. Patient was also advised to return to the ED immediately if symptoms get worse. - Differential Diagnosis shoulder sprain; muscle strain; osteoarthritis; bursitis; tendonitis Critical care attestation.: If time is entered above; I have spent that time in minutes in the direct care of this critically ill patient, excluding procedure time. ED Disposition Clinical Impression: Sprain of left shoulder Qualifiers: Encounter type: initial encounter Shoulder sprain type: unspecified sprain Qualified Code(s): S43.402A - Unspecified sprain of left shoulder joint, initial encounter Muscle strain of left shoulder Qualifiers: Encounter type: initial encounter Qualified Code(s): S46.912A - Strain of unspecified muscle, fascia and tendon at shoulder and upper arm level, left arm, initial encounter Contusion of left shoulder Qualifiers: Encounter type: initial encounter Qualified Code(s): S40.012A - Contusion of left shoulder, initial encounter Osteoarthritis of left shoulder Qualifiers: Osteoarthritis type: primary Qualified Code(s): M19.012 - Primary osteoarthritis, left shoulder Disposition: 01 HOME / SELF CARE / HOMELESS Is pt being admited?: No Does the pt Need Aspirin: No Condition: Stable Instructions: Shoulder Sprain, Arthritis, [id number], Muscle Strain, [id number], Contusion, [id number] Additional Instructions: The left shoulder x-ray showed no acute fractures or subluxations but degenerative joint disease. Your symptoms are likely musculoskeletal injuries following the basketball injury. Therefore take medication as needed with food, drink plenty of fluids and follow-up with your primary care physician in 5 to 7 days for reevaluation. Return to the ED immediately if symptoms get worse. Prescriptions: Ibuprofen [Motrin 800 MG tab] 800 mg PO Q8HR PRN #30 tablet PRN Reason: Pain methOCARBAMOL [Robaxin TAB] 500 mg PO Q8H PRN #15 tablet PRN Reason: Pain Referrals: [facility] [Provider Group] - 3-5 Days Time of Disposition: 04:42 Print Language: ICELANDIC
== END 2021-07-04 05:19 | disposition home or self-care (01) ==
LOC: ED 03:28
DX: S43.402A Unspecified sprain of left shoulder joint, initial encounter (principal); S46.912A Strain of unspecified muscle, fascia and tendon at shoulder and upper arm level, left arm, initial encounter; S40.012A Contusion of left shoulder, initial encounter; M19.012 Primary osteoarthritis, left shoulder; Z85.46 Personal history of malignant neoplasm of prostate; Y93.67 Activity, basketball; Y93.89 Activity, other specified; Y92.89 Other specified places as the place of occurrence of the external cause; Y99.8 Other external cause status
CPT/HCPCS: 99283; Q0162

== ENCOUNTER 2022-04-14 16:54 | Emergency (ER) | payer MEDICARE ==
[2022-04-14 17:41] VITALS: BP 141/81
== END 2022-04-14 22:45 | disposition left against medical advice (07) ==
LOC: ED 16:54
DX: M54.50 Low back pain, unspecified (principal); Z53.21 Procedure and treatment not carried out due to patient leaving prior to being seen by health care provider; V89.2XXA Person injured in unspecified motor-vehicle accident, traffic, initial encounter; Y93.89 Activity, other specified; Y92.89 Other specified places as the place of occurrence of the external cause; Y99.8 Other external cause status

== ENCOUNTER 2022-04-15 09:09 | Emergency (ER) | payer MEDICARE ==
[2022-04-15 09:30] VITALS: BP 135/93
[2022-04-15] MEDS ORDERED: KETOROLAC 10 MG TAB PO ONE (10:46)
[2022-04-15] MEDS ORDERED: CYCLOBENZAPRINE 10 MG TAB PO ONE (10:46)
[2022-04-15] MEDS ORDERED: ACETAMINOPHEN W/CODEINE 300-30 MG TAB PO ONE (10:46)
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
== END 2022-04-15 11:24 | disposition home or self-care (01) ==
LOC: ED 09:09
DX: M25.561 Pain in right knee (principal); M54.50 Low back pain, unspecified; V89.2XXA Person injured in unspecified motor-vehicle accident, traffic, initial encounter; Y93.89 Activity, other specified; Y92.89 Other specified places as the place of occurrence of the external cause; Y99.8 Other external cause status
CPT/HCPCS: 99282